=== PATIENT | male | born 1970 | race American Indian/Alaskan Native ===

== ENCOUNTER 2017-04-06 05:08 | Emergency (ER) | payer MEDICAID ==
[2017-04-06 06:13] VITALS: BP 126/88
[2017-04-06 06:32] LABS: Basophils % (Auto) 0.7 % (0.0-1.8); Eosinophils % (Auto) 4.1 % (0.0-4.3); Hematocrit 39.5 % (35.5-45.6); Hemoglobin 13.1 gm/dl (11.8-15.2); Mean Corpuscular HGB Conc 33 % (32-34); Mean Corpuscular Hemoglobin 30 pg (28-32); Mean Corpuscular Volume 91 fl (84-94); Platelet Count 254 K/mm3 (140-440); Red Blood Count 4.35 M/mm3 (3.65-5.03); Red Cell Distribution Width 13.9 % (13.2-15.2); White Blood Count 7.9 K/mm3 (4.5-11.0)
[2017-04-06 06:44] LABS: Alanine Aminotransferase 14 units/L (7-56); Albumin 4.2 g/dL (3.9-5); Albumin/Globulin Ratio 1.4 %; Alkaline Phosphatase 88 units/L (35-129); Anion Gap 16 mmol/L; BUN/Creatinine Ratio 11.25; Bilirubin,Total < 0.20 mg/dL (0.1-1.2); Blood Urea Nitrogen 9 mg/dL (9-20); Calcium 9.4 mg/dL (8.4-10.2); Carbon Dioxide 28 mmol/L (22-30); Chloride 102.5 mmol/L (98-107); Glucose 88 mg/dL (75-100); Lipase 28 units/L (13-60); Potassium 4.9 mmol/L (3.6-5.0); Sodium 142 mmol/L (137-145); Total Protein 7.2 g/dL (6.3-8.2)
[2017-04-06 06:45] LABS: Urine Drugs of Abuse Note Disclamer
[2017-04-06 07:03] LABS: Bilirubin,Urine NEG (Negative); Blood,Urine SM (Negative); Ketones,Urine NEG (Negative); Leukocyte Esterase,Urine NEG (Negative); Nitrite,Urine NEG (Negative); Protein,Urine <15 mg/dL mg/dL (Negative); Urobilinogen,Urine < 2.0 mg/dL (<2.0)
== END 2017-04-06 06:00 | disposition left against medical advice (07) ==
LOC: ED 05:08
DX: Z53.21 Procedure and treatment not carried out due to patient leaving prior to being seen by health care provider (principal)
CPT/HCPCS: 36415; 80053; 80307; 81001; 83690; 85025; G0480; 80320

== ENCOUNTER 2017-06-15 01:32 | Emergency (ER) | payer MEDICAID ==
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
[2017-06-15] MEDS ORDERED: ZOFRAN ONE (04:38)
[2017-06-15] MEDS ORDERED: MORPHINE ONE (04:38)
[2017-06-15] MEDS ORDERED: MORPHINE IM ONE (05:12)
[2017-06-15] MEDS ORDERED: ZOFRAN IM ONE (05:12)
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
[2017-06-15 09:14] VITALS: BP 115/58
== END 2017-06-15 09:15 | disposition home or self-care (01) ==
LOC: ED 01:32
DX: S02.609A Fracture of mandible, unspecified, initial encounter for closed fracture (principal); Y08.89XA Assault by other specified means, initial encounter; Y93.9 Activity, unspecified; Y92.9 Unspecified place or not applicable; Y99.9 Unspecified external cause status; F17.200 Nicotine dependence, unspecified, uncomplicated
CPT/HCPCS: 70450; 70486; 96372; 99283; J2270; J2405

== ENCOUNTER 2017-11-16 17:56 | Inpatient (IN) | payer SELFPAY ==
[2017-11-16] MEDS ORDERED: TYLENOL PO ONE (18:14)
[2017-11-16 18:27] LABS: Basophils # (Auto) 0.1 K/mm3 (0.0-0.1); Basophils % (Auto) 0.4 % (0.0-1.8); Eosinophils # (Auto) 0.1 K/mm3 (0.0-0.4); Eosinophils % (Auto) 0.6 % (0.0-4.3); Hemoglobin 13.8 gm/dl (11.8-15.2); Lymphocytes # (Auto) 1.4 K/mm3 (1.2-5.4); Lymphocytes % (Auto) 9.6 % (13.4-35.0); Mean Corpuscular HGB Conc 33 % (32-34); Mean Corpuscular Hemoglobin 30 pg (28-32); Mean Corpuscular Volume 91 fl (84-94); Monocytes # (Auto) 1.3 K/mm3 (0.0-0.8); Monocytes % (Auto) 8.6 % (0.0-7.3); Platelet Count 270 K/mm3 (140-440); Red Blood Count 4.61 M/mm3 (3.65-5.03)
[2017-11-16 18:46] LABS: BUN/Creatinine Ratio 13; Blood Urea Nitrogen 12 mg/dL (9-20); Calcium 9.5 mg/dL (8.4-10.2); Hemolysis Index 12
[2017-11-16 19:44] LABS: Bilirubin,Urine NEG (Negative); Blood,Urine NEG (Negative); Color,Urine Yellow (Yellow); Mucus,Urine FEW /HPF; Nitrite,Urine NEG (Negative)
[2017-11-16] MEDS ORDERED: NACL 0.9% 1000 ML IV ONE (20:18)
[2017-11-16] MEDS ORDERED: LEVAQUIN 750MG/150ML 750 MG/150 ML BAG IV ONE (20:20)
[2017-11-16] MEDS ORDERED: VANCOMYCIN VIAL IV ONE (20:20)
--- NOTE | 2017-11-16 20:21 | Emergency Department Report ---
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 Patient reports that a few days ago he had a sore on the dorsal aspect of his penis, and "picked it off." Shortly thereafter developed diffuse penile pain and swelling, left-sided testicular pain, right lower quadrant pain and right lower back pain. He endorses fevers, chills and body aches. He thinks that he has the flu. He denies severe headache, neck pain, chest pain, shortness of breath, irritative urinary symptoms. His pain is constant, does not radiate anywhere, it increases with palpation and decreases with rest. -: Gradual Location: back, abdomen, genitals Severity scale (0 -10): 5 Quality: aching Consistency: constant Improves with: rest Worsens with: movement Associated Symptoms: diaphoresis, fever/chills, loss of appetite, malaise, weakness. denies: confusion, chest pain, nausea/vomiting, rash, seizure, shortness of breath, syncope - Related Data Previous Rx's Medication Instructions Recorded Last Taken Type Ciprofloxacin HCl [Cipro] 500 mg PO Q12H #14 tab 10/13/13 Unknown Rx HYDROcodone/APAP 5-325 [[place] 1 each PO Q6HR PRN #14 tablet 06/15/17 Unknown Rx 5-325 mg TAB] Sulfamethoxazole/Trimethoprim 1 each PO BID #14 tablet 06/15/17 Unknown Rx [Bactrim DS TAB] Allergies Allergy/AdvReac Type Severity Reaction Status Date / Time Penicillins Allergy Hives Verified 10/12/13 22:28 ED Review of Systems ROS: Stated complaint: POSS UTI/ABSCESS ON GENITAL Other details as noted in HPI ED Past Medical Hx - Past Medical History Previous Medical History?: No - Surgical History Past Surgical History?: Yes Additional Surgical History: Jaw reconstruction - Social History Smoking Status: Current Every Day Smoker Substance Use Type: Alcohol, Marijuana - Medications Home Medications: Home Medications Medication Instructions Recorded Confirmed Last Taken Type Ciprofloxacin HCl [Cipro] 500 mg PO Q12H #14 tab 10/13/13 Unknown Rx HYDROcodone/APAP 5-325 [[place] 1 each PO Q6HR PRN #14 tablet 06/15/17 Unknown Rx 5-325 mg TAB] Sulfamethoxazole/Trimethoprim 1 each PO BID #14 tablet 06/15/17 Unknown Rx [Bactrim DS TAB] ED Physical Exam - General Limitations: No Limitations General appearance: alert, in no apparent distress - Head Head exam: Present: atraumatic, normocephalic - Eye Eye exam: Present: normal appearance, EOMI - ENT ENT exam: Present: mucous membranes dry - Neck Neck exam: Present: normal inspection, full ROM - Respiratory Respiratory exam: Present: normal lung sounds bilaterally. Absent: respiratory distress - Cardiovascular Cardiovascular Exam: Present: normal rhythm, tachycardia, normal heart sounds. Absent: systolic murmur, diastolic murmur, rubs, gallop - GI/Abdominal GI/Abdominal exam: Present: soft, normal bowel sounds. Absent: distended, tenderness, guarding, rebound, rigid - Rectal Rectal exam: Present: deferred - exam: Present: testicular tenderness (there is left-sided testicular tenderness.), other (there is no right-sided testicular tenderness. There is normal cremasteric reflex bilaterally. There is normal testicular lie bilaterally.) External exam: Present: other (the penis shaft is diffusely swollen, tender and indurated. There is a scab noted at 2:00.) - Extremities Exam Extremities exam: Present: normal inspection, full ROM, normal capillary refill. Absent: pedal edema, joint swelling, calf tenderness - Back Exam Back exam: Present: normal inspection, full ROM. Absent: tenderness, CVA tenderness (R), paraspinal tenderness, vertebral tenderness - Neurological Exam Neurological exam: Present: alert, oriented X3, CN II-XII intact, other ( Extraocular movements intact. Tongue midline. No facial droop. Facial sensation intact to light touch in the V1, V2, V3 distribution bilaterally. 5 and 5 strength in 4 extremities.. Sensation is intact to light touch in 4 extremities.). Absent: motor sensory deficit - Psychiatric Psychiatric exam: Present: normal mood, anxious - Skin Skin exam: Present: warm, dry, intact, normal color ED Course Vital Signs 11/16/17 11/16/17 18:07 18:15 Temperature 101.7 F H Pulse Rate 138 H Respiratory 14 18 Rate Blood Pressure 132/81 O2 Sat by Pulse 99 Oximetry - Reevaluation(s) Reevaluation #1: 11/16/17 21:28 Differential diagnosis, including but not limited to: Intra-abdominal abscess, penile cellulitis, Jennie's gangrene, epididymal orchitis Assessment and plan: 47-year-old male with probable penile cellulitis with fever , leukocytosis and tachycardia. Abdominal pain is most likely referred pain. Testicular examination demonstrates left-sided testicular tenderness. X-ray of the chest is negative, influenza screen is negative, based on history and physical, I favor sepsis secondary to soft tissue infection. His perineum is nontender and I think a necrotizing or invasive infection is less likely. Code sepsis called overhead, patient reports anaphylaxis to penicillins, he is therefore medicated empirically with Levaquin, as well as vancomycin. IV fluids , lactic acid, blood cultures ordered. Case discussed with urology consult at [place], Dr. Rock. He indicates that based on the current data there is no indication to transfer the patient as he does not require surgical intervention, and recommends IV antibiotics. Reevaluation #2: 11/16/17 22:07 CT scan of the abdomen and pelvis is negative. Testicular ultrasound was negative. Patient still requires pain medication. Awaiting repeat vital signs. Case presents to Hospital physician, Dr. Muñoz; she accepted the patient to the medical service. ED Medical Decision Making - Lab Data Result diagrams: 11/16/17 18:16 11/16/17 18:16 Vital Signs 11/16/17 11/16/17 18:07 18:15 Temperature 101.7 F H Pulse Rate 138 H Respiratory 14 18 Rate Blood Pressure 132/81 O2 Sat by Pulse 99 Oximetry Lab Results 11/16/17 11/16/17 11/16/17 Range/Units 18:16 18:16 18:18 WBC 15.1 H (4.5-11.0) K/mm3 RBC 4.61 (3.65-5.03) M/mm3 Hgb 13.8 (11.8-15.2) gm/dl Hct 42.0 (35.5-45.6) % MCV 91 (84-94) fl MCH 30 (28-32) pg MCHC 33 (32-34) % RDW 14.0 (13.2-15.2) % Plt Count 270 (140-440) K/mm3 Lymph % (Auto) 9.6 L (13.4-35.0) % [place]uyler % (Auto) 8.6 H (0.0-7.3) % Eos % (Auto) 0.6 (0.0-4.3) % Baso % (Auto) 0.4 (0.0-1.8) % Lymph # 1.4 (1.2-5.4) K/mm3 [place]uyler # 1.3 H (0.0-0.8) K/mm3 Eos # 0.1 (0.0-0.4) K/mm3 Baso # 0.1 (0.0-0.1) K/mm3 Seg Neutrophils % 80.8 H (40.0-70.0) % Seg Neutrophils # 12.2 H (1.8-7.7) K/mm3 Sodium 134 L (137-145) mmol/L Potassium 4.3 (3.6-5.0) mmol/L Chloride 95.5 L (98-107) mmol/L Carbon Dioxide 24 (22-30) mmol/L Anion Gap 19 mmol/L BUN 12 (9-20) mg/dL Creatinine 0.9 (0.8-1.5) mg/dL Estimated GFR > 60 ml/min BUN/Creatinine Ratio 13 % Glucose 100 (75-100) mg/dL Lactic Acid (0.7-2.0) mmol/L Calcium 9.5 (8.4-10.2) mg/dL Urine Color Yellow (Yellow) Urine Turbidity Clear (Clear) Urine pH 7.0 (5.0-7.0) Ur Specific Schneider 1.024 (1.003-1.030) Urine Protein 30 mg/dl (Negative) mg/dL Urine Glucose (UA) Neg (Negative) mg/dL Urine Ketones 20 (Negative) mg/dL Urine Blood Neg (Negative) Urine Nitrite Neg (Negative) Urine Bilirubin Neg (Negative) Urine Urobilinogen 4.0 (<2.0) mg/dL Ur Leukocyte Esterase Neg (Negative) Urine WBC (Auto) 5.0 (0.0-6.0) /HPF Urine RBC (Auto) 20.0 (0.0-6.0) /HPF U Epithel Cells (Auto) 1.0 (0-13.0) /HPF Urine Mucus Few /HPF 11/16/17 Range/Units 20:30 WBC (4.5-11.0) K/mm3 RBC (3.65-5.03) M/mm3 Hgb (11.8-15.2) gm/dl Hct (35.5-45.6) % MCV (84-94) fl MCH (28-32) pg MCHC (32-34) % RDW (13.2-15.2) % Plt Count (140-440) K/mm3 Lymph % (Auto) (13.4-35.0) % Schuyler % (Auto) (0.0-7.3) % Eos % (Auto) (0.0-4.3) % Baso % (Auto) (0.0-1.8) % Lymph # (1.2-5.4) K/mm3 Schuyler # (0.0-0.8) K/mm3 Eos # (0.0-0.4) K/mm3 Baso # (0.0-0.1) K/mm3 Seg Neutrophils % (40.0-70.0) % Seg Neutrophils # (1.8-7.7) K/mm3 Sodium (137-145) mmol/L Potassium (3.6-5.0) mmol/L Chloride (98-107) mmol/L Carbon Dioxide (22-30) mmol/L Anion Gap mmol/L BUN (9-20) mg/dL Creatinine (0.8-1.5) mg/dL Estimated GFR ml/min BUN/Creatinine Ratio % Glucose (75-100) mg/dL Lactic Acid 0.90 (0.7-2.0) mmol/L Calcium (8.4-10.2) mg/dL Urine Color (Yellow) Urine Turbidity (Clear) Urine pH (5.0-7.0) Ur Specific Schneider (1.003-1.030) Urine Protein (Negative) mg/dL Urine Glucose (UA) (Negative) mg/dL Urine Ketones (Negative) mg/dL Urine Blood (Negative) Urine Nitrite (Negative) Urine Bilirubin (Negative) Urine Urobilinogen (<2.0) mg/dL Ur Leukocyte Esterase (Negative) Urine WBC (Auto) (0.0-6.0) /HPF Urine RBC (Auto) (0.0-6.0) /HPF U Epithel Cells (Auto) (0-13.0) /HPF Urine Mucus /HPF - Radiology Data Radiology results: report reviewed, image reviewed X-ray of the chest, interpreted by myself and radiology: No acute disease. CT scan of the abdomen pelvis is pending. Testicular ultrasound is pending. Critical care attestation.: If time is entered above; I have spent that time in minutes in the direct care of this critically ill patient, excluding procedure time. ED Disposition Clinical Impression: Sepsis affecting skin Disposition: DC OP ADMIT IP TO THIS HOSP Is pt being admited?: Yes Does the pt Need Aspirin: No Condition: Good Referrals: SALLY RIDDLE MD [Primary Care Provider] - 3-5 Days
[2017-11-16] MEDS ORDERED: VANCOMYCIN PHARMACY TO DOSE IV SCH (21:00)
--- NOTE | 2017-11-16 21:15 | XRay Report ---
FINAL REPORT EXAM: XR CHEST 1V AP HISTORY: Fever/Sepsis TECHNIQUE: AP chest x-ray Comparison: CTA chest 10/14/2016 and lung bases from CT 11/16/2017 which are clear FINDINGS: Normal heart size. Lungs are clear and well expanded without focal infiltrate or consolidation. There is no effusion identified. Imaged axial skeleton demonstrates widened right AC joint somewhat obscured by annotation. The distal clavicle is not eroded this appears to be a chronic finding. IMPRESSION: Clear lungs. Known mild underlying emphysema.
--- NOTE | 2017-11-16 21:30 | Cat Scan Report ---
FINAL REPORT PROCEDURE: CT ABDOMEN PELVIS W CON TECHNIQUE: Computerized axial tomography of the abdomen and pelvis was performed after the IV injection of iodinated nonionic contrast. HISTORY: Fever/Sepsis COMPARISON: No prior studies are available for comparison. FINDINGS: 6 millimeter x 4 millimeter well-defined cystic lesion is noted involving segment 5 of right lobe liver. There are multiple additional smaller hypodense lesions measuring 3-4 millimeters which cannot be further evaluated. Spleen, and adrenal glands are within normal limits. Bilateral kidneys demonstrate uniform enhancement without hydronephrosis aorta is of normal caliber. There is no free fluid or free air. Gallbladder is unremarkable. Small bowel loops are within normal limits. Mild degree residual stool is noted. Appendix is partially visualized and is normal. IMPRESSION: Small cystic lesion right lobe liver. Is no smaller hypodense lesions are too small to characterize. Otherwise no acute intra-abdominal or pelvic pathology.
[2017-11-16] MEDS ORDERED: SUBLIMAZE IV ONE (22:07)
--- NOTE | 2017-11-16 22:20 | Ultrasound Report ---
FINAL REPORT EXAM: US TESTICULAR DOPPLER COMP HISTORY: testicular pain TECHNIQUE: Ultrasound of scrotum PRIORS: None. FINDINGS: Examination of the testicles demonstrates both to be normal in size and normal and homogeneous in echogenicity with normal blood flow bilaterally. No focal abnormality is noted in either testicle. The right testicle measures 3.9 x 2.3 x 2.9 cm and the left measures 4.1 x 1.5 x 2.6 cm. Both epididymides appear normal in size and echogenicity with normal blood flow. There is a cyst in the head of the right epididymis measuring 1.2 cm. No evidence for hydroceles or varicoceles are present bilaterally. IMPRESSION: Small cyst in the head of the right epididymis. Otherwise, normal testicular ultrasound
[2017-11-16] MEDS ORDERED: TYLENOL PO PRN (22:42)
[2017-11-16] MEDS ORDERED: MILK OF MAGNESIA PO PRN (22:42)
[2017-11-16] MEDS ORDERED: ZOFRAN IV PRN (22:42)
[2017-11-16] MEDS ORDERED: NACL 0.9% 1000 ML 1,000 ML ONE (22:42)
[2017-11-16] MEDS ORDERED: DULCOLAX PR PRN (22:42)
--- NOTE | 2017-11-16 22:44 | History and Physical Report ---
History of Present Illness Date of examination: 11/16/17 History of present illness: 47-year-old man with no medical problems comes emergency room because he stated he developed a pimple on the penis 2 days ago, he picked it and has now developed pain,swelling, fever, chills. He also complained of body ache Review Of Systems: Constitutional: no weight loss Ears, eyes, nose, mouth and throat: no nasal congestion, no nasal discharge, no sinus pressure, blurry vision, diplopia Neck: No neck pain or rigidity. Cardiovascular: No chest pain, palpitations Respiratory: No shortness of breath, cough Gastrointestinal: No abdominal pain, hematochezia Genitourinary : no dysuria, frequency , hematuria Musculoskeletal: no muscle ache Integumentary: no rash, no pruritis Neurological: no parathesias, focal weakness Endocrine: no cold or heat intolerance, no polyuria or polydipsia Hematologic/Lymphatic: no easy bruising, no easy bleeding, no gland swelling Allergic/Immunologic: no urticaria, no angioedema. PAST MEDICAL HISTORY:none PAST SURGICAL HISTORY:none FAMILY HISTORY: Hypertension SOCIAL HISTORY: Smokes half pack a day, methamphetamine use, positive alcohol use Medications and Allergies Allergies Allergy/AdvReac Type Severity Reaction Status Date / Time Penicillins Allergy Hives Verified 10/12/13 22:28 Home Medications Medication Instructions Recorded Confirmed Last Taken Type Ciprofloxacin HCl [Cipro] 500 mg PO Q12H #14 tab 10/13/13 Unknown Rx HYDROcodone/APAP 5-325 [[place] 1 each PO Q6HR PRN #14 tablet 06/15/17 Unknown Rx 5-325 mg TAB] Sulfamethoxazole/Trimethoprim 1 each PO BID #14 tablet 06/15/17 Unknown Rx [Bactrim DS TAB] Active Meds: Active Medications Vancomycin HCl 1,500 mg/ (Sodium Chloride) 515 mls @ 257.5 mls/hr IV Q12H DINAH Oseltamivir Phosphate (Tamiflu) 75 mg PO BID DINAH Stop: 11/21/17 10:01 Vancomycin HCl (Vancomycin Pharmacy To Dose) 1 each IV PKCONSULT DINAH PRN Reason: Protocol Exam - Physical Exam Narrative exam: Gen. appearance: Patient lying in bed in no acute distress HEENT: Normocephalic/atraumatic, pupils equal round reactive to light, extra occular movement intact, no scleral icterus, no JVD or thyromegaly or nodule, neck is supple, mucous membrane moist, no erythema or exudate Heart: S1-S2, regular rate and rhythm Lungs: Clear to auscultation bilateral breathing comfortable Abdomen: Positive bowel sounds, nontender, nondistended, no organomegaly Extremities: No edema, cyanosis, clubbing Neuro:: Oriented 3 , cranial nerves II-12 intact, speech, motor intact Skin: No rash, nodules, warm dry - Constitutional Vitals: Temp Pulse Resp BP Pulse Ox 101.7 F H 138 H 18 132/81 99 11/16/17 18:07 11/16/17 18:07 11/16/17 18:15 11/16/17 18:07 11/16/17 18:07 Results - Labs CBC & Chem 7: 11/16/17 18:16 11/16/17 18:16 Labs: Abnormal lab results 11/16/17 11/16/17 Range/Units 18:16 18:16 WBC 15.1 H (4.5-11.0) K/mm3 Lymph % (Auto) 9.6 L (13.4-35.0) % [place] % (Auto) 8.6 H (0.0-7.3) % Noble # 1.3 H (0.0-0.8) K/mm3 Seg Neutrophils % 80.8 H (40.0-70.0) % Seg Neutrophils # 12.2 H (1.8-7.7) K/mm3 Sodium 134 L (137-145) mmol/L Chloride 95.5 L (98-107) mmol/L - Imaging and Cardiology CT scan - abdomen: report reviewed CT scan - pelvis: report reviewed Assessment and Plan testicular US reviewed
[2017-11-16] MEDS: VANCOMYCIN 1,500 MG in NACL 0.9% 500 ML 500 ML IV SCH (22:57)
[2017-11-16] MEDS ORDERED: NACL 0.9% 1000 ML 1,000 ML IV SCH (23:00)
[2017-11-16] MEDS: TAMIFLU PO SCH (23:16)
[2017-11-16] MEDS ORDERED: ZOFRAN ONE (23:18)
[2017-11-17] MEDS ORDERED: TYLENOL PO ONE (01:15)
[2017-11-17] MEDS ORDERED: SUBLIMAZE IV ONE (01:15)
[2017-11-17] MEDS ORDERED: TORADOL IV ONE (02:12)
[2017-11-17] MEDS ORDERED: TORADOL ONE (02:14)
[2017-11-17 04:15] LABS: Hematocrit 42.5 % (35.5-45.6); Hemoglobin 13.8 gm/dl (11.8-15.2); Mean Corpuscular HGB Conc 33 % (32-34); Mean Corpuscular Hemoglobin 30 pg (28-32); Mean Corpuscular Volume 91 fl (84-94); Platelet Count 250 K/mm3 (140-440); Red Blood Count 4.67 M/mm3 (3.65-5.03); Red Cell Distribution Width 14.1 % (13.2-15.2)
[2017-11-17 04:25] LABS: BUN/Creatinine Ratio 13; Blood Urea Nitrogen 13 mg/dL (9-20); Calcium 9.3 mg/dL (8.4-10.2); Hemolysis Index 6
[2017-11-17] MEDS: PERCOCET 5/325 PO PRN ×4 (05:04→20:00)
--- NOTE | 2017-11-17 09:12 | Progress Note ---
<PRATIMA ALVARES - Last Filed: 11/17/17 14:21> Assessment and Plan Assessment and plan: This is a 47-year-old male who was previously on known to this provider, patient 's does not have a local primary care doctor, and endorses a past history of IV methamphetamine abuse within the past month. Patient reports that a few days ago he had a sore on the dorsal aspect of his penis, and "picked it off." Shortly thereafter developed diffuse penile pain and swelling, left-sided testicular pain, right lower quadrant pain and right lower back pain. He endorses fevers, chills and body aches. He thinks that he has the flu. He denies severe headache, neck pain, chest pain, shortness of breath, irritative urinary symptoms. His pain is constant, does not radiate anywhere, it increases with palpation and decreases with rest - Patient Problems (1) Penile cellulitis Current Visit: Yes Status: Acute Plan to address problem: Urology consulted, continue abx (2) Sepsis affecting skin Current Visit: Yes Status: Acute Plan to address problem: Improving, continue antibiotics, ID consulted (3) Current nicotine use Current Visit: Yes Status: Chronic Plan to address problem: Patient counseled on cessation, nicotine patch ordered (4) DVT prophylaxis Current Visit: Yes Status: Acute Plan to address problem: Lovenox History Interval history: Patient was seen and examined. He continues to complain of penile pain. Nursing notes, labs and imaging reviewed. Hospitalist Physical - Physical exam Narrative exam: the penile shaft is diffusely swollen, tender and indurated. - Constitutional Vitals: Temp Pulse Resp BP Pulse Ox 98.5 F 92 H 20 92/51 96 11/17/17 03:59 11/17/17 03:59 11/17/17 03:59 11/17/17 03:59 11/17/17 03:59 General appearance: Present: mild distress, well-nourished - EENT Eyes: Present: PERRL, EOM intact ENT: hearing intact, clear oral mucosa - Neck Neck: Present: supple, normal ROM - Respiratory Respiratory effort: normal Respiratory: bilateral: CTA - Cardiovascular Rhythm: regular Heart Sounds: Present: S1 & S2 - Extremities Extremities: no ischemia, No edema - Abdominal General gastrointestinal: soft, non-tender, non-distended - Integumentary Integumentary: Present: clear, warm, dry - Psychiatric Psychiatric: appropriate mood/affect, cooperative - Neurologic Neurologic: CNII-XII intact, moves all extremities - Allied Health Allied health notes reviewed: nursing Results - Labs CBC & Chem 7: 11/17/17 04:00 11/17/17 04:00 Labs: Laboratory Last Values WBC 14.4 K/mm3 (4.5-11.0) H 11/17/17 04:00 RBC 4.67 M/mm3 (3.65-5.03) 11/17/17 04:00 Hgb 13.8 gm/dl (11.8-15.2) 11/17/17 04:00 Hct 42.5 % (35.5-45.6) 11/17/17 04:00 MCV 91 fl (84-94) 11/17/17 04:00 MCH 30 pg (28-32) 11/17/17 04:00 MCHC 33 % (32-34) 11/17/17 04:00 RDW 14.1 % (13.2-15.2) 11/17/17 04:00 Plt Count 250 K/mm3 (140-440) 11/17/17 04:00 Lymph % (Auto) [employer] 11/17/17 04:00 [place] % (Auto) [employer] 11/17/17 04:00 Eos % (Auto) [employer] 11/17/17 04:00 Baso % (Auto) [employer] 11/17/17 04:00 Lymph # [employer] 11/17/17 04:00 [place] # [employer] 11/17/17 04:00 Eos # [employer] 11/17/17 04:00 Baso # [employer] 11/17/17 04:00 Seg Neutrophils % [employer] 11/17/17 04:00 Seg Neutrophils # [employer] 11/17/17 04:00 Sodium 138 mmol/L (137-145) 11/17/17 04:00 Potassium 3.9 mmol/L (3.6-5.0) 11/17/17 04:00 Chloride 95.0 mmol/L (98-107) L 11/17/17 04:00 Carbon Dioxide 23 mmol/L (22-30) 11/17/17 04:00 Anion Gap 24 mmol/L 11/17/17 04:00 BUN 13 mg/dL (9-20) 11/17/17 04:00 Creatinine 1.0 mg/dL (0.8-1.5) 11/17/17 04:00 Estimated GFR > 60 ml/min 11/17/17 04:00 BUN/Creatinine Ratio 13 % 11/17/17 04:00 Glucose 31 mg/dL (75-100) L* 11/17/17 04:00 POC Glucose 113 (70-105) H 11/17/17 07:24 Lactic Acid 0.90 mmol/L (0.7-2.0) 11/16/17 23:48 Calcium 9.3 mg/dL (8.4-10.2) 11/17/17 04:00 Urine Color Yellow (Yellow) 11/16/17 18:18 Urine Turbidity Clear (Clear) 11/16/17 18:18 Urine pH 7.0 (5.0-7.0) 11/16/17 18:18 Ur Specific [place] 1.024 (1.003-1.030) 11/16/17 18:18 Urine Protein 30 mg/dl mg/dL (Negative) 11/16/17 18:18 Urine Glucose (UA) Neg mg/dL (Negative) 11/16/17 18:18 Urine Ketones 20 mg/dL (Negative) 11/16/17 18:18 Urine Blood Neg (Negative) 11/16/17 18:18 Urine Nitrite Neg (Negative) 11/16/17 18:18 Urine Bilirubin Neg (Negative) 11/16/17 18:18 Urine Urobilinogen 4.0 mg/dL (<2.0) 11/16/17 18:18 Ur Leukocyte Esterase Neg (Negative) 11/16/17 18:18 Urine WBC (Auto) 5.0 /HPF (0.0-6.0) 11/16/17 18:18 Urine RBC (Auto) 20.0 /HPF (0.0-6.0) 11/16/17 18:18 U Epithel Cells (Auto) 1.0 /HPF (0-13.0) 11/16/17 18:18 Urine Mucus Few /HPF 11/16/17 18:18 <SALLY MACHUCA - Last Filed: 11/17/17 15:32> Assessment and Plan Assessment and plan: I saw and evaluated the patient. I agree with the findings and the plan of care as documented in the Nurse Practitioner's~note, with the following corrections and additions. Patient with penile edema, cellulitis. Continue antibiotics. Consult Urology and ID Physician. Hospitalist Physical - Constitutional Vitals: Temp Pulse Resp BP Pulse Ox 98.4 F 83 20 96/52 97 11/17/17 08:57 11/17/17 08:57 11/17/17 14:07 11/17/17 08:57 11/17/17 08:57 Results - Labs CBC & Chem 7: 11/17/17 04:00 11/17/17 04:00 Labs: Laboratory Last Values WBC 14.4 K/mm3 (4.5-11.0) H 11/17/17 04:00 RBC 4.67 M/mm3 (3.65-5.03) 11/17/17 04:00 Hgb 13.8 gm/dl (11.8-15.2) 11/17/17 04:00 Hct 42.5 % (35.5-45.6) 11/17/17 04:00 MCV 91 fl (84-94) 11/17/17 04:00 MCH 30 pg (28-32) 11/17/17 04:00 MCHC 33 % (32-34) 11/17/17 04:00 RDW 14.1 % (13.2-15.2) 11/17/17 04:00 Plt Count 250 K/mm3 (140-440) 11/17/17 04:00 Lymph % (Auto) [employer] [place] 11/17/17 04:00 [place] % (Auto) [employer] 11/17/17 04:00 Eos % (Auto) [employer] 11/17/17 04:00 Baso % (Auto) [employer] [place] 11/17/17 04:00 Lymph # [employer] [place] 11/17/17 04:00 [place] # [employer] 11/17/17 04:00 Eos # [employer] 11/17/17 04:00 Baso # [employer] [place] 11/17/17 04:00 Seg Neutrophils % [employer] [place] 11/17/17 04:00 Seg Neutrophils # [employer] [place] 11/17/17 04:00 Sodium 138 mmol/L (137-145) 11/17/17 04:00 Potassium 3.9 mmol/L (3.6-5.0) 11/17/17 04:00 Chloride 95.0 mmol/L (98-107) L 11/17/17 04:00 Carbon Dioxide 23 mmol/L (22-30) 11/17/17 04:00 Anion Gap 24 mmol/L 11/17/17 04:00 BUN 13 mg/dL (9-20) 11/17/17 04:00 Creatinine 1.0 mg/dL (0.8-1.5) 11/17/17 04:00 Estimated GFR > 60 ml/min 11/17/17 04:00 BUN/Creatinine Ratio 13 % 11/17/17 04:00 Glucose 31 mg/dL (75-100) L* 11/17/17 04:00 POC Glucose 113 (70-105) H 11/17/17 07:24 Lactic Acid 0.90 mmol/L (0.7-2.0) 11/16/17 23:48 Calcium 9.3 mg/dL (8.4-10.2) 11/17/17 04:00 Urine Color Yellow (Yellow) 11/16/17 18:18 Urine Turbidity Clear (Clear) 11/16/17 18:18 Urine pH 7.0 (5.0-7.0) 11/16/17 18:18 Ur Specific [place] 1.024 (1.003-1.030) 11/16/17 18:18 Urine Protein 30 mg/dl mg/dL (Negative) 11/16/17 18:18 Urine Glucose (UA) Neg mg/dL (Negative) 11/16/17 18:18 Urine Ketones 20 mg/dL (Negative) 11/16/17 18:18 Urine Blood Neg (Negative) 11/16/17 18:18 Urine Nitrite Neg (Negative) 11/16/17 18:18 Urine Bilirubin Neg (Negative) 11/16/17 18:18 Urine Urobilinogen 4.0 mg/dL (<2.0) 11/16/17 18:18 Ur Leukocyte Esterase Neg (Negative) 11/16/17 18:18 Urine WBC (Auto) 5.0 /HPF (0.0-6.0) 11/16/17 18:18 Urine RBC (Auto) 20.0 /HPF (0.0-6.0) 11/16/17 18:18 U Epithel Cells (Auto) 1.0 /HPF (0-13.0) 11/16/17 18:18 Urine Mucus Few /HPF 11/16/17 18:18
[2017-11-17] MEDS ORDERED: LOVENOX SUB-Q SCH (10:00)
[2017-11-17] MEDS: VANCOMYCIN 1,500 MG in NACL 0.9% 500 ML 500 ML IV SCH ×2 (10:04→23:21)
[2017-11-17] MEDS: LOVENOX SUB-Q SCH (10:05)
[2017-11-17] MEDS: TAMIFLU PO SCH ×2 (10:05→23:22)
[2017-11-17] MEDS: LEVAQUIN 750MG/150ML 750 MG/150 ML BAG IV SCH (10:05)
[2017-11-17] MEDS: HABITROL TD SCH (12:57)
--- NOTE | 2017-11-17 17:30 | Consultation ---
History of Present Illness - Reason for Consult Consult date: 11/17/17 sepsis Requesting physician: PRATIMA CEBALLOS - History of Present Illness 47 years old male with history of IV methamphetamine abuse within the past month ; admitted on 11/16/2018 due to 48 hours history of severe penile swelling, tenderness and erythema. Patient reports that today before admission, he noted a bump on the dorsal aspect of his penile shaft. Denies any recent trauma or injury. He is sexually active with 2 females, condom and uses is consistent. He reports that the same day he started to picked on the pump to make it drained. He did not get any purulence out. However, 12 hours later he noted increased erythema and edema and tenderness of the area. She also noted nausea and malaise with chills. Denies vomiting or diarrhea. He also noted severe frontal headache. No cough. In the emergency room, initial temperature was 101.7, heart rate 138, respiration 14, O2 sat 99, blood pressure 132/81. Initial white count 15.1. Hemoglobin 13.8. Platelets 270. Creatinine is 0.9. Lactic acid 0.9. Urinalysis was negative. Microbiology: Blood cultures: 11/16 ngtd Influenza: neg Current Antimicrobials: Tamiflu Levaquin Vancomycin Previous Antimicrobials: Past History Past Surgical History: No surgical history Social history: no significant social history, single, smoking, IV drug use Family history: no significant family history Medications and Allergies Allergies Allergy/AdvReac Type Severity Reaction Status Date / Time Penicillins Allergy Hives Verified 10/12/13 22:28 Home Medications Medication Instructions Recorded Confirmed Last Taken Type No Known Home Medications [No 11/17/17 11/17/17 Unknown History Reported Home Medications] Active Meds: Active Medications Acetaminophen (Tylenol) 650 mg PO Q4H PRN PRN Reason: Pain MILD(1-3)/Fever >100.5/CERDA Bisacodyl (Dulcolax) 10 mg IA QDAY PRN PRN Reason: Constipation unrelieved by MOM Enoxaparin Sodium (Lovenox) 40 mg SUB-Q QDAY@1000 [facility] Last Admin: 11/17/17 10:05 Dose: 40 mg Vancomycin HCl 1,500 mg/ (Sodium Chloride) 515 mls @ 257.5 mls/hr IV Q12H [facility] Last Admin: 11/17/17 10:04 Dose: 257.5 mls/hr Sodium Chloride (Nacl 0.9% 1000 Ml) 1,000 mls @ 150 mls/hr IV DIRECT DINAH Levofloxacin/Dextrose (Levaquin 750mg/150ml) 750 mg in 150 mls @ 100 mls/hr IV Q24HR DINAH PRN Reason: Protocol Last Admin: 11/17/17 10:05 Dose: 100 mls/hr Magnesium Hydroxide (Milk Of Magnesia) 30 ml PO Q4H PRN PRN Reason: Constipation Nicotine (Habitrol) 14 mg TD QDAY [facility] Last Admin: 11/17/17 12:57 Dose: 14 mg Ondansetron HCl (Zofran) 4 mg IV Q4H PRN PRN Reason: N/V unrelieved by [place] Last Admin: 11/16/17 23:16 Dose: 4 mg Oseltamivir Phosphate (Tamiflu) 75 mg PO BID [facility] Stop: 11/21/17 10:01 Last Admin: 11/17/17 10:05 Dose: 75 mg Oxycodone/Acetaminophen (Percocet 5/325) 1 tab PO Q4H PRN PRN Reason: Pain, Moderate (4-6) Last Admin: 11/17/17 14:07 Dose: 1 tab Vancomycin HCl (Vancomycin Pharmacy To Dose) 1 each IV PKCONSULT DINAH PRN Reason: Protocol Review of Systems All systems: negative (as per HPI rest neg) Physical Examination - Physical Exam Narrative exam: Assessment: 1) Sepsis: Present on admission, manifested by fever, tachycardia, leukocytosis. Etiology most likely penile cellulitis / abscess, less likely influenza 2) Penile cellulitis / early abscess: initial lesion unclear etiology ? STD versus folliculitis 3) IV amphetamine user Plan: -Urology eval -follow-up blood cultures -obtain C-reactive protein (CRP) -check influenza antigen PCR in nasopharinx -continue vanco, zosyn and tamiflu -check HIV, RPR, GC and chlamydia -add doxycycline Thank you VINCENT Ceballos for your consultation, will follow up with you. Shantelle Desai MD Infectious Diseases Specialist [facility] ([facility]) M [phone] O [phone] - Constitutional Vitals: Vital Signs Temp Pulse Resp BP Pulse Ox 99.0 F 89 18 97/54 93 11/17/17 15:50 11/17/17 15:50 11/17/17 15:50 11/17/17 15:50 11/17/17 15:50 Temperature -Last 24 Hours Temperature 99.0 F Temperature 100.4 F Temperature 98.4 F Temperature 98.5 F Temperature 102.2 F Temperature 101.7 F Results - Labs CBC & Chem 7: 11/17/17 04:00 11/17/17 04:00 Labs: Abnormal lab results 11/16/17 11/16/17 11/17/17 Range/Units 18:16 18:16 04:00 WBC 15.1 H 14.4 H (4.5-11.0) K/mm3 Lymph % (Auto) 9.6 L (13.4-35.0) % [place] % (Auto) 8.6 H (0.0-7.3) % [place] # 1.3 H (0.0-0.8) K/mm3 Seg Neutrophils % 80.8 H (40.0-70.0) % Seg Neutrophils # 12.2 H (1.8-7.7) K/mm3 Sodium 134 L (137-145) mmol/L Chloride 95.5 L (98-107) mmol/L Glucose (75-100) mg/dL POC Glucose (70-105) 11/17/17 11/17/17 Range/Units 04:00 07:24 WBC (4.5-11.0) K/mm3 Lymph % (Auto) (13.4-35.0) % [place] % (Auto) (0.0-7.3) % [place] # (0.0-0.8) K/mm3 Seg Neutrophils % (40.0-70.0) % Seg Neutrophils # (1.8-7.7) K/mm3 Sodium (137-145) mmol/L Chloride 95.0 L (98-107) mmol/L Glucose 31 L* (75-100) mg/dL POC Glucose 113 H (70-105)
--- NOTE | 2017-11-17 17:45 | Progress Note ---
Assessment and Plan ?? chancrois or LGV on IV abs ID consult noted rec mri and poss drainage pensing all explained dictated Subjective Date of service: 11/17/17 Principal diagnosis: penile lesion edema Objective - Constitutional Vitals: Vital Signs - 12hr 11/17/17 11/17/17 11/17/17 08:57 10:44 12:26 Temperature 98.4 F 100.4 F H Pulse Rate 83 92 H Respiratory 16 20 18 Rate Blood Pressure 96/52 94/55 O2 Sat by Pulse 97 97 Oximetry 11/17/17 11/17/17 14:07 15:50 Temperature 99.0 F Pulse Rate 89 Respiratory 20 18 Rate Blood Pressure 97/54 O2 Sat by Pulse 93 Oximetry General appearance: Present: mild distress - Neck Neck: supple - Respiratory Respiratory effort: normal - Gastrointestinal General gastrointestinal: Present: soft, non-tender - Genitourinary Male genitourinary: right inguinal lymphadenopathy, left inguinal lymphadenopathy, asymmetrical - Labs CBC & Chem 7: 11/17/17 04:00 11/17/17 04:00 Labs: Abnormal lab results 11/16/17 11/16/17 11/17/17 Range/Units 18:16 18:16 04:00 WBC 15.1 H 14.4 H (4.5-11.0) K/mm3 Lymph % (Auto) 9.6 L (13.4-35.0) % [place] % (Auto) 8.6 H (0.0-7.3) % [place] # 1.3 H (0.0-0.8) K/mm3 Seg Neutrophils % 80.8 H (40.0-70.0) % Seg Neutrophils # 12.2 H (1.8-7.7) K/mm3 Sodium 134 L (137-145) mmol/L [place] 95.5 L (98-107) mmol/L Glucose (75-100) mg/dL POC Glucose (70-105) 11/17/17 11/17/17 Range/Units 04:00 07:24 WBC (4.5-11.0) K/mm3 Lymph % (Auto) (13.4-35.0) % [place] % (Auto) (0.0-7.3) % [place] # (0.0-0.8) K/mm3 Seg Neutrophils % (40.0-70.0) % Seg Neutrophils # (1.8-7.7) K/mm3 Sodium (137-145) mmol/L Chloride 95.0 L (98-107) mmol/L Glucose 31 L* (75-100) mg/dL POC Glucose 113 H (70-105)
[2017-11-17] MEDS: VIBRAMYCIN PO SCH (23:22)
[2017-11-18] MEDS: PERCOCET 5/325 PO PRN ×3 (02:49→18:02)
--- NOTE | 2017-11-18 05:54 | Consultation ---
HISTORY OF PRESENT ILLNESS: The patient is a 47-year-old gentleman with history of IV amphetamine abuse who has a severe swelling in the dorsum of his penis and induration. He has some significant adenopathy. He has at least 2 partners sexually. He denies any recent venereal disease, but the swelling is bad and tender. He has been circumcised in the past. PAST MEDICAL HISTORY: As mentioned above. PAST SURGICAL HISTORY: Facial surgery. SOCIAL HISTORY: History of drug use. MEDICATIONS: Bactrim. ALLERGIES: PENICILLIN. REVIEW OF SYSTEMS: A 3-4 days of the swelling that has progressed. PHYSICAL EXAMINATION: GENERAL: Awake, alert, he is in moderate discomfort. ABDOMEN: Soft, nondistended. GENITALIA: He has got bilateral 1 cm adenopathy. In his penis, he has got an ulcer mid shaft, circumcised with severe distal edema and induration proximally extending to both groins. There is no fluctuation. Testes descended bilaterally. RECTAL: Digital rectal exam, no localized masses, 10-15 gram prostate, no nodules. IMPRESSION: Rule out Chancroid or lymphogranuloma venereum or local trauma or bite. He needs IV antibiotics and possible exploration. We will get an MRI of the penis. JOB# [id number] ALEKS/VINNY
[2017-11-18 06:35] LABS: Hemoglobin 12.5 gm/dl (11.8-15.2); Mean Corpuscular HGB Conc 34 % (32-34); Mean Corpuscular Hemoglobin 31 pg (28-32); Mean Corpuscular Volume 90 fl (84-94); Platelet Count 208 K/mm3 (140-440); Red Blood Count 4.01 M/mm3 (3.65-5.03); Red Cell Distribution Width 13.5 % (13.2-15.2)
[2017-11-18 08:11] LABS: BUN/Creatinine Ratio 8; Blood Urea Nitrogen 6 mg/dL (9-20); Calcium 8.5 mg/dL (8.4-10.2); Hemolysis Index 0
[2017-11-18] MEDS ORDERED: ZOVIRAX IV SCH (09:00)
--- NOTE | 2017-11-18 09:31 | Progress Note ---
Assessment and Plan Assessment: 1) Sepsis:still fever, leukocytosis better. Etiology most likely penile cellulitis / abscess, less likely influenza. CRP=9.9 2) Penile cellulitis / early abscess / painful penile lesion: initial lesion unclear etiology ? HSV (given partner positive for HSV) with superimposed bacterial infection versus folliculitis versus LVG (doubt since LVG is painless ) versus Chancroid (it is painful but rare in [place]) 3) IV amphetamine user 4) Cough: CXR neg. Influenza Ag neg Plan: -penile MRI -please obtain ulcer cultures and specimen for HSV PCR -start IV acyclovir -continue vanco, zosyn, doxy and tamiflu -f/u HIV, RPR, GC and chlamydia Thank you VINCENT Ceballos for your consultation, will follow up with you. Shantelle Desai MD Infectious Diseases Specialist [facility] ([facility]) M [phone] O [phone] Subjective Date of service: 11/18/17 Principal diagnosis: penile lesion edema Interval history: Still fever 102, feels some better, slightly decreased of penile edema. Microbiology: Blood cultures: 11/16 ngtd Influenza: neg Current Antimicrobials: Tamiflu Levaquin Vancomycin Doxy Previous Antimicrobials: Objective - Exam Narrative Exam: General appearance: Alert in NAD, conversant Eyes: anicteric sclerae, moist conjunctivae; no lid-lag; PERRLA HENT: Atraumatic; oropharynx clear Neck: Trachea midline; supple, no thyromegaly or lymphadenopathy Lungs: CTA CV: RRR, no murmurs Abdomen: Soft, non-tender; no masses or hepatosplenomegaly Extremities: No peripheral edema or extremity lymphadenopathy Skin: Normal temperature, turgor and texture; no rash, ulcers or subcutaneous nodules Gen: marked penile edema and mid shaft ulcerations with central necrosis no purulence seen Psych: Appropriate affect, alert and oriented to person, place and time. Neuro: alert and oriented x 3. Moving all extermities Lines: No CVL / PICC - Constitutional Vitals: Vital Signs Temp Pulse Resp BP Pulse Ox 98.8 F 82 18 85/52 93 11/18/17 07:19 11/18/17 07:19 11/18/17 07:19 11/18/17 07:19 11/18/17 07:19 Temperature -Last 24 Hours Temperature 98.8 F Temperature 102.7 F Temperature 101.0 F Temperature 99.0 F Temperature 100.4 F - Labs CBC & Chem 7: 11/18/17 05:15 11/18/17 05:15 Labs: Abnormal lab results 11/17/17 11/18/17 Range/Units Unknown 05:15 BUN 6 L (9-20) mg/dL Glucose 138 H (75-100) mg/dL C-Reactive Protein 9.90 H (0.00-1.30) mg/dL
[2017-11-18] MEDS: VANCOMYCIN 1,500 MG in NACL 0.9% 500 ML 500 ML IV SCH ×2 (11:56→23:18)
[2017-11-18] MEDS: LEVAQUIN 750MG/150ML 750 MG/150 ML BAG IV SCH (12:05)
[2017-11-18] MEDS: TAMIFLU PO SCH (12:12)
[2017-11-18] MEDS: HABITROL TD SCH (12:12)
[2017-11-18] MEDS: LOVENOX SUB-Q SCH (12:13)
[2017-11-18] MEDS: VIBRAMYCIN PO SCH ×2 (12:13→21:02)
[2017-11-18] MEDS: ZOVIRAX 700 MG in NACL 0.9% 100 ML IV SCH ×2 (12:13→21:02)
--- NOTE | 2017-11-18 13:56 | Progress Note ---
<PRATIMA ALVARES - Last Filed: 11/18/17 14:00> Assessment and Plan Assessment and plan: This is a 47-year-old male who was previously on known to this provider, patient 's does not have a local primary care doctor, and endorses a past history of IV methamphetamine abuse within the past month. Patient reports that a few days ago he had a sore on the dorsal aspect of his penis, and "picked it off." Shortly thereafter developed diffuse penile pain and swelling, left-sided testicular pain, right lower quadrant pain and right lower back pain. He endorses fevers, chills and body aches. He thinks that he has the flu. He denies severe headache, neck pain, chest pain, shortness of breath, irritative urinary symptoms. His pain is constant, does not radiate anywhere, it increases with palpation and decreases with rest Penile cellulitis Urology and ID following Pt to continue vanco, zosyn, doxy and tamiflu, IV acyclovir initiated f/u HIV, RPR, GC and chlamydia penile ulcer culture ordered, MRI pelvis ordered, possible exploration Sepsis affecting skin Improving, continue antibiotics, ID consulted Current nicotine use Patient counseled on cessation, nicotine patch ordered DVT prophylaxis Lovenox History Interval history: Patient was seen and examined. He is resting comfortably with decreased penile pain today. He denies CP, SOB, NV. Nursing notes, labs and imaging reviewed. Hospitalist Physical - Constitutional Vitals: Temp Pulse Resp BP Pulse Ox 98.8 F 82 18 85/52 93 11/18/17 07:19 11/18/17 07:19 11/18/17 07:19 11/18/17 07:19 11/18/17 07:19 General appearance: Present: no acute distress, well-nourished - EENT Eyes: Present: PERRL, EOM intact ENT: hearing intact, clear oral mucosa - Neck Neck: Present: supple, normal ROM - Respiratory Respiratory effort: normal Respiratory: bilateral: CTA - Cardiovascular Rhythm: regular Heart Sounds: Present: S1 & S2 - Extremities Extremities: no ischemia, No edema - Abdominal General gastrointestinal: soft, non-tender, non-distended - Integumentary Integumentary: Present: clear, warm, dry - Psychiatric Psychiatric: appropriate mood/affect, cooperative - Neurologic Neurologic: CNII-XII intact - Allied Health Allied health notes reviewed: nursing Results - Labs CBC & Chem 7: 11/18/17 05:15 11/18/17 05:15 Labs: Laboratory Last Values WBC 10.4 K/mm3 (4.5-11.0) 11/18/17 05:15 RBC 4.01 M/mm3 (3.65-5.03) 11/18/17 05:15 Hgb 12.5 gm/dl (11.8-15.2) 11/18/17 05:15 Hct 39.0 % (35.5-45.6) 11/18/17 05:15 MCV 90 fl (84-94) 11/18/17 05:15 MCH 31 pg (28-32) 11/18/17 05:15 MCHC 34 % (32-34) 11/18/17 05:15 RDW 13.5 % (13.2-15.2) 11/18/17 05:15 Plt Count 208 K/mm3 (140-440) 11/18/17 05:15 Lymph % (Auto) Nurse Ob 11/17/17 04:00 Wright % (Auto) Nurse Ob 11/17/17 04:00 Eos % (Auto) Nurse Ob 11/17/17 04:00 Baso % (Auto) Nurse Ob 11/17/17 04:00 Lymph # Nurse Ob 11/17/17 04:00 Wright # Nurse Ob 11/17/17 04:00 Eos # Nurse Ob 11/17/17 04:00 Baso # Nurse Ob 11/17/17 04:00 Seg Neutrophils % Nurse Ob 11/17/17 04:00 Seg Neutrophils # Nurse Ob 11/17/17 04:00 Sodium 137 mmol/L (137-145) 11/18/17 05:15 Potassium 3.7 mmol/L (3.6-5.0) 11/18/17 05:15 Chloride 102.2 mmol/L (98-107) 11/18/17 05:15 Carbon Dioxide 22 mmol/L (22-30) 11/18/17 05:15 Anion Gap 17 mmol/L 11/18/17 05:15 BUN 6 mg/dL (9-20) L 11/18/17 05:15 Creatinine 0.8 mg/dL (0.8-1.5) 11/18/17 05:15 Estimated GFR > 60 ml/min 11/18/17 05:15 BUN/Creatinine Ratio 8 % 11/18/17 05:15 Glucose 138 mg/dL (75-100) H 11/18/17 05:15 POC Glucose 113 (70-105) H 11/17/17 07:24 Lactic Acid 0.90 mmol/L (0.7-2.0) 11/16/17 23:48 Calcium 8.5 mg/dL (8.4-10.2) 11/18/17 05:15 C-Reactive Protein 9.90 mg/dL (0.00-1.30) H 11/17/17 Unknown Urine Color Yellow (Yellow) 11/16/17 18:18 Urine Turbidity Clear (Clear) 11/16/17 18:18 Urine pH 7.0 (5.0-7.0) 11/16/17 18:18 Ur Specific [place] 1.024 (1.003-1.030) 11/16/17 18:18 Urine Protein 30 mg/dl mg/dL (Negative) 11/16/17 18:18 Urine Glucose (UA) Neg mg/dL (Negative) 11/16/17 18:18 Urine Ketones 20 mg/dL (Negative) 11/16/17 18:18 Urine Blood Neg (Negative) 11/16/17 18:18 Urine Nitrite Neg (Negative) 11/16/17 18:18 Urine Bilirubin Neg (Negative) 11/16/17 18:18 Urine Urobilinogen 4.0 mg/dL (<2.0) 11/16/17 18:18 Ur Leukocyte Esterase Neg (Negative) 11/16/17 18:18 Urine WBC (Auto) 5.0 /HPF (0.0-6.0) 11/16/17 18:18 Urine RBC (Auto) 20.0 /HPF (0.0-6.0) 11/16/17 18:18 U Epithel Cells (Auto) 1.0 /HPF (0-13.0) 11/16/17 18:18 Urine Mucus Few /HPF 11/16/17 18:18 RPR Nonreactive (Nonreactive) 11/17/17 19:36 HIV 1&2 Antibody Rapid N (Non React) 11/17/17 19:36 HIV P24 Antigen N (Non React) 11/17/17 19:36 <AKHIL MEADOWS R - Last Filed: 11/18/17 21:19> Assessment and Plan Assessment and plan: I saw and evaluated the patient. I agree with the findings and the plan of care as documented in the Nurse Practitioner's~note, with the following corrections and additions. Will stop Tamiflu as influenza test was negative. Hospitalist Physical - Constitutional Vitals: Temp Pulse Resp BP Pulse Ox 102.3 F H 81 18 122/74 97 11/18/17 15:47 11/18/17 15:47 11/18/17 15:47 11/18/17 15:47 11/18/17 15:47 Results - Labs CBC & Chem 7: 11/18/17 05:15 11/18/17 05:15 Labs: Laboratory Last Values WBC 10.4 K/mm3 (4.5-11.0) 11/18/17 05:15 RBC 4.01 M/mm3 (3.65-5.03) 11/18/17 05:15 Hgb 12.5 gm/dl (11.8-15.2) 11/18/17 05:15 Hct 39.0 % (35.5-45.6) 11/18/17 05:15 MCV 90 fl (84-94) 11/18/17 05:15 MCH 31 pg (28-32) 11/18/17 05:15 MCHC 34 % (32-34) 11/18/17 05:15 RDW 13.5 % (13.2-15.2) 11/18/17 05:15 Plt Count 208 K/mm3 (140-440) 11/18/17 05:15 Lymph % (Auto) Nurse Ob 11/17/17 04:00 Wright % (Auto) Nurse Ob 11/17/17 04:00 Eos % (Auto) Nurse Ob 11/17/17 04:00 Baso % (Auto) Nurse Ob 11/17/17 04:00 Lymph # Nurse Ob 11/17/17 04:00 Wright # Nurse Ob 11/17/17 04:00 Eos # Nurse Ob 11/17/17 04:00 Baso # Nurse Ob 11/17/17 04:00 Seg Neutrophils % Nurse Ob 11/17/17 04:00 Seg Neutrophils # Nurse Ob 11/17/17 04:00 Sodium 137 mmol/L (137-145) 11/18/17 05:15 Potassium 3.7 mmol/L (3.6-5.0) 11/18/17 05:15 Chloride 102.2 mmol/L (98-107) 11/18/17 05:15 Carbon Dioxide 22 mmol/L (22-30) 11/18/17 05:15 Anion Gap 17 mmol/L 11/18/17 05:15 BUN 6 mg/dL (9-20) L 11/18/17 05:15 Creatinine 0.8 mg/dL (0.8-1.5) 11/18/17 05:15 Estimated GFR > 60 ml/min 11/18/17 05:15 BUN/Creatinine Ratio 8 % 11/18/17 05:15 Glucose 138 mg/dL (75-100) H 11/18/17 05:15 POC Glucose 113 (70-105) H 11/17/17 07:24 Lactic Acid 0.90 mmol/L (0.7-2.0) 11/16/17 23:48 Calcium 8.5 mg/dL (8.4-10.2) 11/18/17 05:15 C-Reactive Protein 9.90 mg/dL (0.00-1.30) H 11/17/17 Unknown Urine Color Yellow (Yellow) 11/16/17 18:18 Urine Turbidity Clear (Clear) 11/16/17 18:18 Urine pH 7.0 (5.0-7.0) 11/16/17 18:18 Ur Specific [place] 1.024 (1.003-1.030) 11/16/17 18:18 Urine Protein 30 mg/dl mg/dL (Negative) 11/16/17 18:18 Urine Glucose (UA) Neg mg/dL (Negative) 11/16/17 18:18 Urine Ketones 20 mg/dL (Negative) 11/16/17 18:18 Urine Blood Neg (Negative) 11/16/17 18:18 Urine Nitrite Neg (Negative) 11/16/17 18:18 Urine Bilirubin Neg (Negative) 11/16/17 18:18 Urine Urobilinogen 4.0 mg/dL (<2.0) 11/16/17 18:18 Ur Leukocyte Esterase Neg (Negative) 11/16/17 18:18 Urine WBC (Auto) 5.0 /HPF (0.0-6.0) 11/16/17 18:18 Urine RBC (Auto) 20.0 /HPF (0.0-6.0) 11/16/17 18:18 U Epithel Cells (Auto) 1.0 /HPF (0-13.0) 11/16/17 18:18 Urine Mucus Few /HPF 11/16/17 18:18 RPR Nonreactive (Nonreactive) 11/17/17 19:36 HIV 1&2 Antibody Rapid N (Non React) 11/17/17 19:36 HIV P24 Antigen N (Non React) 11/17/17 19:36
[2017-11-18] MEDS: MORPHINE IV PRN ×2 (14:54→21:01)
--- NOTE | 2017-11-18 16:09 | Anesthesia Consultation ---
Anesthesia Consult and Med Hx Date of service: 11/18/17 - Airway Anesthetic Teeth Evaluation: Good ROM Head & Neck: Adequate Mental/Hyoid Distance: Adequate Mallampati Class: Class II Intubation Access Assessment: Probably Good - Pulmonary Exam CTA: Yes - Cardiac Exam Cardiac Exam: RRR - Pre-Operative Health Status ASA Pre-Surgery Classification: ASA2 Proposed Anesthetic Plan: MAC (12pack years) - Pulmonary Hx Smoking: Yes Hx Asthma: No COPD: No Hx Pneumonia: No - Cardiovascular System Hx Hypertension: No - Central Nervous System Hx Psychiatric Problems: No - Gastrointestinal Hx Gastroesophageal Reflux Disease: No - Endocrine Hx End Stage Renal Disease: No - Other Systems Hx Alcohol Use: Yes (at least weekly) Hx Substance Use: Yes (admits to experimenting including cocaine and meth) Hx Cancer: No
--- NOTE | 2017-11-18 16:14 | Anesthesia Day of Surgery ---
Anesthesia Day of Surgery - Day of Surgery Patient Examined: Yes Patient H&P Reviewed: Yes Patient is NPO: Yes Beta Blockers: Yes Cardiac Clearance: Yes Pulmonary Clearance: Yes
[2017-11-18] MEDS: LACTATED RINGERS 1,000 ML IV SCH ×2 (16:50→18:02)
[2017-11-18] MEDS ORDERED: VERSED IV NR (17:00)
[2017-11-18] MEDS ORDERED: PEPCID PO NR (17:00)
--- NOTE | 2017-11-18 17:31 | Magnetic Resonance Report ---
FINAL REPORT PROCEDURE: MRI pelvis including the penis without contrast. TECHNIQUE: Magnetic resonance imaging of the pelvis was performed using standard sequences. CPT 92047 HISTORY: Possible abscess. COMPARISON: CT abdomen and pelvis 11/16/2017. FINDINGS: The girth of the penis may have decreased since the previous CT scan. There are no focal fluid collections within the penis to suggest an abscess. There are no abnormal fluid collections within the pelvis to suggest an abscess. There is no fluid within the scrotum. The bladder, seminal vesicles and prostate are unremarkable. The pelvic musculature and bones have normal signal intensity. There are numerous bilateral inguinal lymph nodes. The largest lymph node is in the left inguinal region measuring 2.2 centimeters x 1.4 centimeters in cross-section. IMPRESSION: Numerous bilateral inguinal lymph nodes. No evidence of an abscess in the penis nor pelvis.
--- NOTE | 2017-11-18 20:10 | Post Anesthesia Evaluation ---
- Post Anesthesia Evaluation Patient Participated: No (Patient sedated for return to the ICU) Airway Patent: Yes (trach remains the ventilation site) Stable Respiratory Function: Yes (with ventilator of which he arrived on ) Temp > 96.8F: Yes Adequeate Hydration: Yes Anesthesia Complications: No Block Receding Appropriately: Not Applicable Patient on Ventilator: Yes (Patient to return to ICU)
[2017-11-19] MEDS: MORPHINE IV PRN ×4 (01:32→20:07)
[2017-11-19] MEDS: ZOVIRAX 700 MG in NACL 0.9% 100 ML IV SCH ×3 (06:32→21:39)
[2017-11-19] MEDS ORDERED: VERSED IV NR (09:10)
[2017-11-19] MEDS: NACL 0.9% 1000 ML 1,000 ML IV SCH (09:32)
[2017-11-19] MEDS ORDERED: PEPCID PO NR (10:00)
[2017-11-19] MEDS: VIBRAMYCIN PO SCH ×2 (10:00→21:39)
[2017-11-19] MEDS: HABITROL TD SCH (10:00)
[2017-11-19] MEDS: LEVAQUIN 750MG/150ML 750 MG/150 ML BAG IV SCH (10:00)
[2017-11-19] MEDS: LOVENOX SUB-Q SCH (10:00)
[2017-11-19] MEDS: VANCOMYCIN 1,500 MG in NACL 0.9% 500 ML 500 ML IV SCH (10:09)
[2017-11-19] MEDS ORDERED: MARCAINE 0.5% 0 ML INFILTRATI ONE (10:38)
[2017-11-19] MEDS ORDERED: XYLOCAINE 1% 20 mL ONE (10:38)
--- NOTE | 2017-11-19 11:00 | Anesthesia Day of Surgery ---
Anesthesia Day of Surgery - Day of Surgery Patient Examined: Yes Patient H&P Reviewed: Yes Patient is NPO: Yes Beta Blockers: Yes Cardiac Clearance: Yes Pulmonary Clearance: Yes
[2017-11-19] MEDS ORDERED: DIPRIVAN 10 MG/ML IV ONE (11:14)
[2017-11-19] MEDS ORDERED: SUBLIMAZE ONE (11:14)
[2017-11-19] MEDS ORDERED: XYLOCAINE MPF 2% ONE ×2 (11:15)
[2017-11-19] MEDS ORDERED: DECADRON ONE (11:15)
[2017-11-19] MEDS ORDERED: TORADOL ONE (11:16)
[2017-11-19] MEDS ORDERED: NACL 0.9% 250ML IRRIGATION ONE (11:39)
[2017-11-19] MEDS: DILAUDID IV PRN ×4 (12:03→12:45)
--- NOTE | 2017-11-19 12:18 | Post Operative Note ---
Date of procedure: 11/19/17 Pre-op diagnosis: penile abcess Post-op diagnosis: same Findings: penile abcess Procedure: i and d penile abcess Anesthesia: GETA Surgeon: SCOTT ASHLEY Estimated blood loss: minimal Pathology: list (abcess) Specimen disposition: to lab Condition: stable Disposition: PACU
--- NOTE | 2017-11-19 13:19 | Post Anesthesia Evaluation ---
- Post Anesthesia Evaluation Patient Participated: Yes Airway Patent: Yes Stable Respiratory Function: Yes Nausea/Vomiting: No Temp > 96.8F: Yes Pain Manageable: Yes Adequeate Hydration: Yes Anesthesia Complications: No Block Receding Appropriately: Not Applicable
--- NOTE | 2017-11-19 13:58 | Operative Report ---
PREOPERATIVE DIAGNOSIS: Penile abscess. POSTOPERATIVE DIAGNOSIS: Penile abscess. PROCEDURE: Incision and drainage of penile abscess. SURGEON: Shekhar Foss MD. ANESTHESIA: General. FINDINGS: This is a gentleman who presented with an abscess, whether there was an injection or a bite, I do not know, but there is a big abscess extending from the right dorsum of the penis extending towards the groin. He now presents for drainage. DESCRIPTION OF PROCEDURE: The patient was brought to the operating room and placed on the table. Following induction of anesthesia, placed in the supine position, prepped and draped in usual sterile fashion. The area was opened up and a large amount of purulent material was evacuated. Cultures were obtained. Some of the skin was necrotic and debrided. We approximated some of the skin very loosely with chromic and Vicryl and secured the Marci drain in place. The patient tolerated the procedure well and brought to recovery room in stable condition. JOB# [id number] ALEKS/VINNY
--- NOTE | 2017-11-19 14:56 | Progress Note ---
<PRATIMA ALVARES - Last Filed: 11/20/17 08:35> Assessment and Plan Assessment and plan: This is a 47-year-old male who was previously on known to this provider, patient 's does not have a local primary care doctor, and endorses a past history of IV methamphetamine abuse within the past month. Patient reports that a few days ago he had a sore on the dorsal aspect of his penis, and "picked it off." Shortly thereafter developed diffuse penile pain and swelling, left-sided testicular pain, right lower quadrant pain and right lower back pain. He endorses fevers, chills and body aches. He thinks that he has the flu. He denies severe headache, neck pain, chest pain, shortness of breath, irritative urinary symptoms. His pain is constant, does not radiate anywhere, it increases with palpation and decreases with rest Penile cellulitis Urology and ID following Pt to continue vanco, zosyn, doxy, IV acyclovir stop tamiflu f/u HIV, RPR, GC and chlamydia Status post surgical I&D of penile abscess MRI pelvis showed bilateral inguinal lymph nodes, no evidence of abscess in penis and pelvis Sepsis affecting skin Improving, continue antibiotics, ID following Current nicotine use Patient counseled on cessation, nicotine patch ordered DVT prophylaxis Lovenox History Interval history: Patient was seen and examined. He is resting comfortably, continues to complain of penile pain. He denies CP, SOB, NV. Nursing notes, labs and imaging reviewed. Hospitalist Physical - Constitutional Vitals: Temp Pulse Resp BP Pulse Ox 97.5 F L 58 L 20 101/63 100 11/19/17 14:20 11/19/17 14:20 11/19/17 14:20 11/19/17 14:20 11/19/17 14:20 General appearance: Present: no acute distress, well-nourished - EENT Eyes: Present: PERRL, EOM intact ENT: hearing intact, clear oral mucosa - Neck Neck: Present: supple, normal ROM - Respiratory Respiratory effort: normal Respiratory: bilateral: CTA - Cardiovascular Rhythm: regular Heart Sounds: Present: S1 & S2 - Extremities Extremities: no ischemia, No edema - Abdominal General gastrointestinal: soft, non-tender, non-distended - Integumentary Integumentary: Present: clear, warm, dry - Psychiatric Psychiatric: appropriate mood/affect, cooperative - Neurologic Neurologic: CNII-XII intact, moves all extremities - Allied Health Allied health notes reviewed: nursing Results - Labs CBC & Chem 7: 11/18/17 05:15 11/18/17 05:15 Labs: Laboratory Last Values WBC 10.4 K/mm3 (4.5-11.0) 11/18/17 05:15 RBC 4.01 M/mm3 (3.65-5.03) 11/18/17 05:15 Hgb 12.5 gm/dl (11.8-15.2) 11/18/17 05:15 Hct 39.0 % (35.5-45.6) 11/18/17 05:15 MCV 90 fl (84-94) 11/18/17 05:15 MCH 31 pg (28-32) 11/18/17 05:15 MCHC 34 % (32-34) 11/18/17 05:15 RDW 13.5 % (13.2-15.2) 11/18/17 05:15 Plt Count 208 K/mm3 (140-440) 11/18/17 05:15 Lymph % (Auto) [employer] 11/17/17 04:00 Morgan % (Auto) [employer] 11/17/17 04:00 Eos % (Auto) [employer] 11/17/17 04:00 Baso % (Auto) [employer] 11/17/17 04:00 Lymph # [employer] 11/17/17 04:00 Morgan # [employer] 11/17/17 04:00 Eos # [employer] 11/17/17 04:00 Baso # [employer] 11/17/17 04:00 Seg Neutrophils % [employer] 11/17/17 04:00 Seg Neutrophils # [employer] 11/17/17 04:00 Sodium 137 mmol/L (137-145) 11/18/17 05:15 Potassium 3.7 mmol/L (3.6-5.0) 11/18/17 05:15 Chloride 102.2 mmol/L (98-107) 11/18/17 05:15 Carbon Dioxide 22 mmol/L (22-30) 11/18/17 05:15 Anion Gap 17 mmol/L 11/18/17 05:15 BUN 6 mg/dL (9-20) L 11/18/17 05:15 Creatinine 0.8 mg/dL (0.8-1.5) 11/18/17 05:15 Estimated GFR > 60 ml/min 11/18/17 05:15 BUN/Creatinine Ratio 8 % 11/18/17 05:15 Glucose 138 mg/dL (75-100) H 11/18/17 05:15 POC Glucose 102 (70-105) 11/19/17 12:14 Lactic Acid 0.90 mmol/L (0.7-2.0) 11/16/17 23:48 Calcium 8.5 mg/dL (8.4-10.2) 11/18/17 05:15 C-Reactive Protein 9.90 mg/dL (0.00-1.30) H 11/17/17 Unknown Urine Color Yellow (Yellow) 11/16/17 18:18 Urine Turbidity Clear (Clear) 11/16/17 18:18 Urine pH 7.0 (5.0-7.0) 11/16/17 18:18 Ur Specific [place] 1.024 (1.003-1.030) 11/16/17 18:18 Urine Protein 30 mg/dl mg/dL (Negative) 11/16/17 18:18 Urine Glucose (UA) Neg mg/dL (Negative) 11/16/17 18:18 Urine Ketones 20 mg/dL (Negative) 11/16/17 18:18 Urine Blood Neg (Negative) 11/16/17 18:18 Urine Nitrite Neg (Negative) 11/16/17 18:18 Urine Bilirubin Neg (Negative) 11/16/17 18:18 Urine Urobilinogen 4.0 mg/dL (<2.0) 11/16/17 18:18 Ur Leukocyte Esterase Neg (Negative) 11/16/17 18:18 Urine WBC (Auto) 5.0 /HPF (0.0-6.0) 11/16/17 18:18 Urine RBC (Auto) 20.0 /HPF (0.0-6.0) 11/16/17 18:18 U Epithel Cells (Auto) 1.0 /HPF (0-13.0) 11/16/17 18:18 Urine Mucus Few /HPF 11/16/17 18:18 Vancomycin Trough 8.9 ug/mL (5.0-20.0) 11/18/17 20:48 RPR Nonreactive (Nonreactive) 11/17/17 19:36 HIV 1&2 Antibody Rapid N (Non React) 11/17/17 19:36 HIV P24 Antigen N (Non React) 11/17/17 19:36 <AKHIL MEADOWS R - Last Filed: 11/20/17 08:44> Assessment and Plan Assessment and plan: I saw and evaluated the patient on 11/19/17. I agree with the findings and the plan of care as documented in the Nurse Practitioner's~note, with the following corrections and additions. - continue vanco, zosyn, doxy and acyclovir for now- Plan to narrow spectrum tomorrow per ID Hospitalist Physical - Constitutional Vitals: Temp Pulse Resp BP Pulse Ox 97.5 F L 61 20 96/53 97 11/19/17 14:20 11/19/17 15:25 11/19/17 15:25 11/19/17 15:25 11/19/17 20:59 Results - Labs CBC & Chem 7: 11/18/17 05:15 11/18/17 05:15 Labs: Laboratory Last Values WBC 10.4 K/mm3 (4.5-11.0) 11/18/17 05:15 RBC 4.01 M/mm3 (3.65-5.03) 11/18/17 05:15 Hgb 12.5 gm/dl (11.8-15.2) 11/18/17 05:15 Hct 39.0 % (35.5-45.6) 11/18/17 05:15 MCV 90 fl (84-94) 11/18/17 05:15 MCH 31 pg (28-32) 11/18/17 05:15 MCHC 34 % (32-34) 11/18/17 05:15 RDW 13.5 % (13.2-15.2) 11/18/17 05:15 Plt Count 208 K/mm3 (140-440) 11/18/17 05:15 Lymph % (Auto) [employer] 11/17/17 04:00 Morgan % (Auto) [employer] 11/17/17 04:00 Eos % (Auto) [employer] 11/17/17 04:00 Baso % (Auto) [employer] 11/17/17 04:00 Lymph # [employer] 11/17/17 04:00 Morgan # [employer] 11/17/17 04:00 Eos # [employer] 11/17/17 04:00 Baso # [employer] 11/17/17 04:00 Seg Neutrophils % [employer] 11/17/17 04:00 Seg Neutrophils # [employer] 11/17/17 04:00 Sodium 137 mmol/L (137-145) 11/18/17 05:15 Potassium 3.7 mmol/L (3.6-5.0) 11/18/17 05:15 Chloride 102.2 mmol/L (98-107) 11/18/17 05:15 Carbon Dioxide 22 mmol/L (22-30) 11/18/17 05:15 Anion Gap 17 mmol/L 11/18/17 05:15 BUN 6 mg/dL (9-20) L 11/18/17 05:15 Creatinine 0.8 mg/dL (0.8-1.5) 11/18/17 05:15 Estimated GFR > 60 ml/min 11/18/17 05:15 BUN/Creatinine Ratio 8 % 11/18/17 05:15 Glucose 138 mg/dL (75-100) H 11/18/17 05:15 POC Glucose 102 (70-105) 11/19/17 12:14 Lactic Acid 0.90 mmol/L (0.7-2.0) 11/16/17 23:48 Calcium 8.5 mg/dL (8.4-10.2) 11/18/17 05:15 C-Reactive Protein 9.90 mg/dL (0.00-1.30) H 11/17/17 Unknown Urine Color Yellow (Yellow) 11/16/17 18:18 Urine Turbidity Clear (Clear) 11/16/17 18:18 Urine pH 7.0 (5.0-7.0) 11/16/17 18:18 Ur Specific [place] 1.024 (1.003-1.030) 11/16/17 18:18 Urine Protein 30 mg/dl mg/dL (Negative) 11/16/17 18:18 Urine Glucose (UA) Neg mg/dL (Negative) 11/16/17 18:18 Urine Ketones 20 mg/dL (Negative) 11/16/17 18:18 Urine Blood Neg (Negative) 11/16/17 18:18 Urine Nitrite Neg (Negative) 11/16/17 18:18 Urine Bilirubin Neg (Negative) 11/16/17 18:18 Urine Urobilinogen 4.0 mg/dL (<2.0) 11/16/17 18:18 Ur Leukocyte Esterase Neg (Negative) 11/16/17 18:18 Urine WBC (Auto) 5.0 /HPF (0.0-6.0) 11/16/17 18:18 Urine RBC (Auto) 20.0 /HPF (0.0-6.0) 11/16/17 18:18 U Epithel Cells (Auto) 1.0 /HPF (0-13.0) 11/16/17 18:18 Urine Mucus Few /HPF 11/16/17 18:18 Vancomycin Trough 8.9 ug/mL (5.0-20.0) 11/18/17 20:48 RPR Nonreactive (Nonreactive) 11/17/17 19:36 HIV 1&2 Antibody Rapid N (Non React) 11/17/17 19:36 HIV P24 Antigen N (Non React) 11/17/17 19:36
[2017-11-19] MEDS: VANCOMYCIN 1,250 MG in NACL 0.9% 250ML 250 ML IV SCH (17:45)
--- NOTE | 2017-11-19 20:28 | Progress Note ---
Assessment and Plan Assessment: 1) Sepsis: better. Etiology most likely penile abscess. CRP=9.9 2) Penile abscess / initial painful penile lesion: initial lesion unclear etiology ? HSV (given partner positive for HSV) with superimposed bacterial infection versus folliculitis versus LVG (doubt since LVG is painless) versus Chancroid (it is painful but rare in [place]). -Penis MRI neg for abscess -s/p OR I+D with purulence obtained -RPR neg 3) IV amphetamine user 4) Cough: CXR neg. Influenza Ag neg Plan: -f/u OR cultures -contact isolation until MRSA is r/o -continue vanco, zosyn, doxy and acyclovir for now-will narrow spectrum tomorrow -stop tamiflu -f/u HIV GC and chlamydia Thank you VINCENT Ceballos for your consultation, will follow up with you. Shantelle Desai MD Infectious Diseases Specialist [facility] ([facility]) M [phone] O [phone] Subjective Date of service: 11/19/17 Principal diagnosis: penile lesion edema Interval history: feels better, fever trending down, went to the OR Microbiology: Blood cultures: 11/16 ngtd Influenza: neg Current Antimicrobials: Tamiflu Levaquin Vancomycin Doxy Acyclovir Previous Antimicrobials: Objective - Exam Narrative Exam: General appearance: Alert in NAD, conversant Eyes: anicteric sclerae, moist conjunctivae; no lid-lag; PERRLA HENT: Atraumatic; oropharynx clear Neck: Trachea midline; supple, no thyromegaly or lymphadenopathy Lungs: CTA CV: RRR, no murmurs Abdomen: Soft, non-tender; no masses or hepatosplenomegaly Extremities: No peripheral edema or extremity lymphadenopathy Skin: Normal temperature, turgor and texture; no rash, ulcers or subcutaneous nodules Gen: marked penile edema with drain draining pus Psych: Appropriate affect, alert and oriented to person, place and time. Neuro: alert and oriented x 3. Moving all extermities Lines: No CVL / PICC - Constitutional Vitals: Vital Signs Temp Pulse Resp BP Pulse Ox 97.5 F L 61 20 96/53 99 11/19/17 14:20 11/19/17 15:25 11/19/17 15:25 11/19/17 15:25 11/19/17 15:25 Temperature -Last 24 Hours Temperature 97.5 F Temperature 97.5 F Temperature 97.3 F Temperature 99.0 F Temperature 97.6 F Temperature 99.7 F Temperature 99.7 F Temperature 99.4 F Temperature 98.2 F - Labs CBC & Chem 7: 11/18/17 05:15 11/18/17 05:15
[2017-11-20] MEDS: MORPHINE IV PRN ×2 (00:47→05:33)
[2017-11-20] MEDS: PERCOCET 5/325 PO PRN ×2 (02:04→14:44)
[2017-11-20] MEDS: VANCOMYCIN 1,250 MG in NACL 0.9% 250ML 250 ML IV SCH ×2 (02:05→12:00)
[2017-11-20] MEDS: NACL 0.9% 1000 ML 1,000 ML IV SCH (05:45)
[2017-11-20] MEDS: ZOVIRAX 700 MG in NACL 0.9% 100 ML IV SCH (05:46)
--- NOTE | 2017-11-20 08:31 | Progress Note ---
Assessment and Plan improved ok to discharge with drain antibiotics per ID f/u 5 days Subjective Date of service: 11/20/17 Principal diagnosis: penile lesion edema Objective - Constitutional Vitals: Vital Signs - 12hr 11/19/17 11/20/17 11/20/17 20:59 04:33 07:35 Temperature 97.7 F 97.8 F Pulse Rate 65 69 Respiratory 18 20 Rate Blood Pressure 94/55 93/42 O2 Sat by Pulse 97 97 97 Oximetry General appearance: Present: no acute distress - Respiratory Respiratory effort: normal Extremities: no ischemia - Genitourinary Male genitourinary: asymmetrical (healing .. less drainage ) - Labs CBC & Chem 7: 11/18/17 05:15 11/18/17 05:15
[2017-11-20] MEDS: LOVENOX SUB-Q SCH (10:00)
[2017-11-20] MEDS: LEVAQUIN 750MG/150ML 750 MG/150 ML BAG IV SCH (10:00)
[2017-11-20] MEDS: HABITROL TD SCH (10:00)
--- NOTE | 2017-11-20 10:07 | Progress Note ---
Assessment and Plan Assessment: 1) Sepsis: better. Etiology most likely penile abscess. CRP=9.9 2) Penile abscess / initial painful penile lesion: initial lesion unclear etiology ? HSV (given partner positive for HSV) with superimposed bacterial infection versus folliculitis versus LVG (doubt since LVG is painless) versus Chancroid (it is painful but rare in [place]). -Penis MRI neg for abscess -s/p OR I+D with purulence obtained -RPR neg -surgical culture positive for MRSA 3) IV amphetamine user 4) Cough: CXR neg. Influenza Ag neg Plan: -continue contact isolation for MRSA -continue doxycycline day 4 and vancomycin day 5 -stop levaquin and acyclovir -f/u GC and chlamydia -upon discharge will do zyvox 600 mg po q 12 hrs x 14 days, continue doxycycline 100 mg po to complete 14 days -follow up with Urologist Thank you VINCENT Ceballos for your consultation, will follow up with you. GORDON Ny for Dr. Shantelle Desai MD Infectious Diseases Specialist [facility] M [phone] Subjective Date of service: 11/20/17 Principal diagnosis: penile lesion edema Interval history: I feel better, no fever Microbiology: Blood cultures: 11/16 ngtd Influenza: neg Foreskin surgical culture positive for MRSA Current Antimicrobials: Vancomycin 11/16 Doxy 11/17 Previous Antimicrobials: Tamiflu Levaquin Acyclovir Objective - Exam Narrative Exam: General appearance: Alert in NAD, conversant Eyes: anicteric sclerae, moist conjunctivae; no lid-lag; PERRLA HENT: Atraumatic; oropharynx clear Neck: Trachea midline; supple, no thyromegaly or lymphadenopathy Lungs: CTA CV: RRR, no murmurs Abdomen: Soft, non-tender; no masses or hepatosplenomegaly Extremities: No peripheral edema or extremity lymphadenopathy Skin: Normal temperature, turgor and texture; no rash, ulcers or subcutaneous nodules Gen: marked penile edema with drain draining pus Psych: Appropriate affect, calm and cooperative Neuro: alert and oriented x 3. Moving all extermities Lines: No CVL / PICC - Constitutional Vitals: Vital Signs Temp Pulse Resp BP Pulse Ox 97.8 F 69 20 93/42 97 11/20/17 07:35 11/20/17 07:35 11/20/17 07:35 11/20/17 07:35 11/20/17 07:35 Temperature -Last 24 Hours Temperature 97.8 F Temperature 97.7 F Temperature 97.5 F Temperature 97.5 F Temperature 97.3 F Temperature 99.0 F Temperature 97.6 F - Labs CBC & Chem 7: 11/18/17 05:15 11/18/17 05:15
[2017-11-20] MEDS ORDERED: MORPHINE IV PRN (10:26)
[2017-11-20] MEDS: VIBRAMYCIN PO SCH (11:58)
--- NOTE | 2017-11-20 13:19 | Discharge Summary ---
Providers - Providers Date of Admission: 11/16/17 22:42 Date of discharge: 11/20/17 Attending physician: AKHIL MEADOWS 11/17/17 12:21 Consult to Physician [CONS] Routine Consulting Provider: VADIM GUERRIER Reason For Exam: Penile swelling Place consult to:: DR. ASHLEY Notified:: DR. ASHLEY 11/17/17 12:24 Consult to Physician [CONS] Routine Consulting Provider: RYLIE POSADA Reason For Exam: sepsis Place consult to:: dr. bruno Notified:: Phone number called:: [phone] Was contact made?: Yes If yes, spoke with:: dr. bruno Time called:: 16:38 Primary care physician: SALLY RIDDLE Hospitalization Condition: Good Pertinent studies: CT abdomen showed no acute intra-abdominal abnormality Chest x-ray showed known underlying emphysema MRI pelvis showed bilateral inguinal lymph nodes, no evidence of abscess in penis and pelvis Testicular ultrasound showed small cysts in the right epididymis, otherwise normal testicular ultrasound Hospital course: This is a 47-year-old male who was previously on known to this provider, patient 's does not have a local primary care doctor, and endorses a past history of IV methamphetamine abuse within the past month. Patient reports that a few days ago he had a sore on the dorsal aspect of his penis, and "picked it off." Shortly thereafter developed diffuse penile pain and swelling, left-sided testicular pain, right lower quadrant pain and right lower back pain. He endorses fevers, chills and body aches. He thinks that he has the flu. He denies severe headache, neck pain, chest pain, shortness of breath, irritative urinary symptoms. His pain is constant, does not radiate anywhere, it increases with palpation and decreases with rest Patient was found to have an abscess on the penile shaft. He was taken to the OR for I&D which was without complication. Patient was treated with IV antibiotics and was discharged with same. Patient given instructions to follow up with urologist upon discharge. Penile cellulitis Likely secondary to underlying abscess Sepsis affecting skin Likely due to penile abscess Current nicotine use Patient counseled on cessation, nicotine patch ordered DVT prophylaxis Lovenox Disposition: TO HOME OR SELFCARE Time spent for discharge: 35 minutes Core Measure Documentation - Palliative Care Palliative Care/ Comfort Measures: Not Applicable - Core Measures Any of the following diagnoses?: none Exam - Constitutional Vitals: Temp Pulse Resp BP Pulse Ox 97.8 F 69 20 93/42 100 11/20/17 07:35 11/20/17 07:35 11/20/17 07:35 11/20/17 07:35 11/20/17 10:00 General appearance: Present: no acute distress, well-nourished - EENT Eyes: Present: PERRL ENT: hearing intact, clear oral mucosa - Neck Neck: Present: supple, normal ROM - Respiratory Respiratory effort: normal Respiratory: bilateral: CTA - Cardiovascular Heart Sounds: Present: S1 & S2. Absent: rub, click - Extremities Extremities: pulses symmetrical, No edema Peripheral Pulses: within normal limits - Abdominal General gastrointestinal: Present: soft, non-tender, non-distended, normal bowel sounds Male genitourinary: Present: tender (surgical sutures with drain ) - Integumentary Integumentary: Present: clear, warm, dry - Musculoskeletal Musculoskeletal: gait normal, strength equal bilaterally - Psychiatric Psychiatric: appropriate mood/affect, intact judgment & insight - Neurologic Neurologic: CNII-XII intact, moves all extremities - Allied Health Allied health notes reviewed: nursing Plan Activity: advance as tolerated Weight Bearing Status: Weight Bear as Tolerated Diet: regular, per dietitian instruction Wound: per your surgeon's advice Follow up with: SALLY RIDDLE MD [Primary Care Provider] - 3-5 Days SCOTT ASHLEY MD [Staff Physician] - 7 Days Prescriptions: Doxycycline Hyclate [Vibramycin] 100 mg PO DAILY #10 capsule Linezolid [Zyvox] 600 mg PO BID #28 tablet oxyCODONE /ACETAMINOPHEN [Percocet 5/325 mg] 1 tab PO Q4H PRN #12 tablet PRN Reason: Pain, Moderate (4-6)
[2017-11-20 15:31] VITALS: BP 101/63
== END 2017-11-20 17:00 | disposition home or self-care (01) | DRG 855 ==
LOC: ED 17:56 → 3A 22:42
PROVIDERS: ADMIT Internal Medicine; ATTEND Internal Medicine
PROC: 0V9SXZZ Drainage of Penis, External Approach (ICD-10-PCS; principal; 2017-11-19)
PROC: 0VBSXZZ Excision of Penis, External Approach (ICD-10-PCS; 2017-11-19)
DX: A41.9 Sepsis, unspecified organism (principal); F15.90 Other stimulant use, unspecified, uncomplicated; F17.200 Nicotine dependence, unspecified, uncomplicated; N48.22 Cellulitis of corpus cavernosum and penis; N48.21 Abscess of corpus cavernosum and penis; Z72.89 Other problems related to lifestyle; Z82.49 Family history of ischemic heart disease and other diseases of the circulatory system; Z88.0 Allergy status to penicillin; Z79.899 Other long term (current) drug therapy; Z79.2 Long term (current) use of antibiotics
CPT/HCPCS: 36415; 71045; 72195; 74177; 80048; 80202; 81001; 82140; 82962; 85025; 85027; 86140; 86403; 86592; 86695; 86696; 87040; 87075; 87086; 87116; 87186; 87400; 87806; 88305; 93005; 93010; 93975; 96361; 96365; 96366; 96375; J0133; J1100; J1170; J1650; J1885; J1956; J2250; J2270; J2405; J2704; J3010; J3370; J7030; J7040; J7050; J7120; Q9967

== ENCOUNTER 2017-11-21 01:07 | Inpatient (IN) | payer SELFPAY ==
[2017-11-21] MEDS ORDERED: MORPHINE IV ONE (02:07)
[2017-11-21] MEDS ORDERED: ZOFRAN IV ONE ×2 (02:09→02:10)
[2017-11-21] MEDS ORDERED: NACL 0.9% 1000 ML 1,000 ML IV ONE (02:10)
[2017-11-21] MEDS ORDERED: DILAUDID IV ONE (02:10)
[2017-11-21 02:34] LABS: Basophils # (Auto) 0.1 K/mm3 (0.0-0.1); Basophils % (Auto) 1.1 % (0.0-1.8); Eosinophils # (Auto) 0.4 K/mm3 (0.0-0.4); Eosinophils % (Auto) 3.4 % (0.0-4.3); Hematocrit 20.5 % (35.5-45.6); Hemoglobin 7.2 gm/dl (11.8-15.2); Lymphocytes # (Auto) 3.3 K/mm3 (1.2-5.4); Lymphocytes % (Auto) 31.8 % (13.4-35.0); Mean Corpuscular HGB Conc 35 % (32-34); Mean Corpuscular Hemoglobin 32 pg (28-32); Mean Corpuscular Volume 91 fl (84-94); Monocytes # (Auto) 1.2 K/mm3 (0.0-0.8); Monocytes % (Auto) 11.6 % (0.0-7.3); Platelet Count 469 K/mm3 (140-440); Red Blood Count 2.26 M/mm3 (3.65-5.03); Red Cell Distribution Width 13.5 % (13.2-15.2)
--- NOTE | 2017-11-21 02:40 | Emergency Department Report ---
ED Male HPI - General Chief complaint: Urogenital-Male Stated complaint: PENILE PAIN Time Seen by Provider: 11/21/17 02:01 Source: EMS Mode of arrival: Ambulatory Limitations: No Limitations - History of Present Illness Initial comments: 47-year-old male male with a past medical history of methamphetamine abuse and recent surgery for penile abscess presents to the hospital complaints of opening of the now postsurgical wound. Patient was admitted here the 25th for sepsis, penile abscess, and had a I&D performed by urology with surgical drain placed. Patient was discharged on Zyvox and doxycycline. Patient was able to get doxycycline filled with the pharmacist did not have Zyvox available. Social 30 a.m. patient woke up to use a bedside urinal and noticed that he was able to see the distal part of the wound drain and opening of the sutures to his penis. Pain reported to be 8/10 in intensity and worse with palpation. - Related Data Previous Rx's Medication Instructions Recorded Last Taken Type Doxycycline Hyclate [Vibramycin] 100 mg PO DAILY #10 capsule 11/20/17 Unknown Rx Linezolid [Zyvox] 600 mg PO BID #28 tablet 11/20/17 Unknown Rx oxyCODONE /ACETAMINOPHEN [Percocet 1 tab PO Q4H PRN #12 tablet 11/20/17 Unknown Rx 5/325 mg] Allergies Allergy/AdvReac Type Severity Reaction Status Date / Time Penicillins Allergy Hives Verified 10/12/13 22:28 ED Review of Systems ROS: Stated complaint: PENILE PAIN Other details as noted in HPI Comment: All other systems reviewed and negative Other: Constitutional: No fevers chills Eyes: No eye pain visual changes ENT: No ear pain or throat pain Neck: Denies pain Respiratory: Denies cough wheezing shortness of breath Cardiovascular: Denies chest pain, palpitations, syncope GI: Denies abdominal pain, nausea, vomiting, diarrhea : As in HPI Musculoskeletal: Denies back pain Skin: Denies rash, lesions, erythema Neurologic: Denies headache, numbness, weakness Psychiatric: Denies suicidal ideation, hallucinations ED Past Medical Hx - Past Medical History Previous Medical History?: No Hx Hypertension: No Hx Congestive Heart Failure: No Hx Diabetes: No Hx Asthma: No Hx COPD: No Hx HIV: No - Surgical History Past Surgical History?: Yes Additional Surgical History: Jaw reconstruction, penile cyst surgery - Social History Smoking Status: Current Every Day Smoker - Medications Home Medications: Home Medications Medication Instructions Recorded Confirmed Last Taken Type Doxycycline Hyclate [Vibramycin] 100 mg PO DAILY #10 capsule 11/20/17 Unknown Rx Linezolid [Zyvox] 600 mg PO BID #28 tablet 11/20/17 Unknown Rx oxyCODONE /ACETAMINOPHEN [Percocet 1 tab PO Q4H PRN #12 tablet 11/20/17 Unknown Rx 5/325 mg] ED Physical Exam - General Limitations: No Limitations - Other Other exam information: General: No limitations, patient is alert in no acute distress Head exam: Atraumatic, normocephalic Eyes exam: Normal appearance ENT: Moist mucous membrane, normal oropharynx Neck exam: Normal inspection, full range of motion Respiratory exam: Clear to auscultation bilateral, no wheezes, rales, crackles Cardiovascular: Normal rate and rhythm, normal heart sounds Abdomen: Soft, nondistended, and nontender, with normal bowel sounds, no rebound, or guarding : Patient is circumcised, Proximal penile drain noted to the right side of the penis, distant opening noted with dehiscence of wound with sutures noted and distal portion of the penile drainage is noted. Extremity: Full range of motion normal inspection no deformity Back: Normal Inspection, full range of motion, no tenderness Neurologic: Alert, oriented x3, cranial nerves intact, no motor or sensory deficit Psychiatric: normal affect, normal mood Skin: Warm, dry, intact ED Course Vital Signs 11/21/17 01:43 Temperature 97.4 F L Pulse Rate 70 Respiratory 18 Rate Blood Pressure 118/68 [Right] O2 Sat by Pulse 97 Oximetry - Consultations Consultation #1: 11/21/17 03:06 Case discussed with urologist Dr. Domínguez. Will evaluate patient during admission ED Medical Decision Making - Lab Data Result diagrams: 11/21/17 02:10 11/21/17 02:10 Lab Results 11/21/17 11/21/17 Range/Units 02:10 02:10 WBC 10.4 (4.5-11.0) K/mm3 RBC 2.26 L (3.65-5.03) M/mm3 Hgb 7.2 L D (11.8-15.2) gm/dl Hct 20.5 L D (35.5-45.6) % MCV 91 (84-94) fl MCH 32 (28-32) pg MCHC 35 H (32-34) % RDW 13.5 (13.2-15.2) % Plt Count 469 H D (140-440) K/mm3 Lymph % (Auto) 31.8 (13.4-35.0) % [place] % (Auto) 11.6 H (0.0-7.3) % Eos % (Auto) 3.4 (0.0-4.3) % Baso % (Auto) 1.1 (0.0-1.8) % Lymph # 3.3 (1.2-5.4) K/mm3 [place] # 1.2 H (0.0-0.8) K/mm3 Eos # 0.4 (0.0-0.4) K/mm3 Baso # 0.1 (0.0-0.1) K/mm3 Seg Neutrophils % 52.1 (40.0-70.0) % Seg Neutrophils # 5.4 (1.8-7.7) K/mm3 Sodium 140 (137-145) mmol/L Potassium 4.5 D (3.6-5.0) mmol/L Chloride 101.2 (98-107) mmol/L Carbon Dioxide 27 (22-30) mmol/L Anion Gap 16 mmol/L BUN 8 L (9-20) mg/dL Creatinine 0.7 L (0.8-1.5) mg/dL Estimated GFR > 60 ml/min BUN/Creatinine Ratio 11 % Glucose 81 (75-100) mg/dL Calcium 8.5 (8.4-10.2) mg/dL - Medical Decision Making Penile wound dehiscence Urologist informed Will evaluate patient in the hospital Anemia Significant drop compared to the Pt is Jehovah witness and does not want blood products Patient will be admitted to monitor H&H to ensure stability prior to discharge Patient denies melena or hematochezia - Differential Diagnosis wound dehiscence, penile abscess, Critical Care Time: No Critical care attestation.: If time is entered above; I have spent that time in minutes in the direct care of this critically ill patient, excluding procedure time. ED Disposition Clinical Impression: Wound, open, penis, Postoperative wound dehiscence, Anemia Disposition: OP ADMIT IP TO THIS HOSP Is pt being admited?: Yes Condition: Stable Time of Disposition: 03:41 (Dr. Govea/hosp)
[2017-11-21 02:43] LABS: BUN/Creatinine Ratio 11; Blood Urea Nitrogen 8 mg/dL (9-20); Calcium 8.5 mg/dL (8.4-10.2); Hemolysis Index 99
--- NOTE | 2017-11-21 05:23 | History and Physical Report ---
History of Present Illness Date of examination: 11/21/17 Date of admission: 11/21/17 03:42 Chief complaint: Opening of the new post surgical wound History of present illness: 47 year old -[place] male with past medical history significant for penile abscess status post incision and drainage of this abscess, methamphetamine use was discharged yesterday from the hospital after he was admitted for sepsis, pain and abscess. He was treated with IV antibiotics and given prescription for by mouth Zyvox and doxycycline but he couldn't refill his medications. Urology was consulted and did drainage of abscess. Patient has a draining tube left on the abscess site and he felt a flap and both sides of the draining tube are on the outside and patient presented back to the ED. Urology was consuulted and recommended the wound will get better on time. In the ED blood work was done and hemoglobin dropped from 12.5 to 7.2. No symptoms. patient is Johva witness and will not take any blood. ED talked with Dr Marino and recommend for follow up of the H/H. repeat H/H is pending. REVIEW OF SYSTEMS: GENERAL: no weight change, no fatigue, no fever HEAD: no head ache EYES: no blurry vision, no acute visual loss EARS: no hearing loss, no discharge, no earache NOSE: no stuffiness, no sneezing, no discharge MOUTH, THROAT AND NECK: no bleeding gums, no sore throat, no swollen neck CARDIAC: no palpitations, no dyspnea on exertion, no orthopnea, no PND, no edema , no chest pain RESPIRATORY: no shortness of breath, no wheeze, no cough, no sputum, no hemoptysis, no asthma GI: no decreased appetite, no nausea, no vomiting, no dysphagia, no diarrhea, no constipation, no abdominal pain URINARY: no change in frequency, no urgency, no polyuria, no hematuria, no incontinence MUSCULOSKELETAL: no muscle weakness, no pain, no joint stiffness NEUROLOGIC: no loss of sensation/numbness, no tingling, no tremors, no weakness/ paralysis HEMATOLOGIC: no anemia, no easy bruising SKIN: draining abscess on the penis. ENDOCRINE: no heat/cold intolerance, no polyuria, no polydipsia, no thyroid problems, no diabetes PSYCHIATRIC: no anxiety, no depression, no suicidal ideations Past History Past Medical History: other (Penile abscess) Past Surgical History: Other (I/D of penile abscess) Social history: smoking (1/2 PPD, meth use), full code. denies: alcohol abuse, prescription drug abuse, IV drug use Family history: no significant family history Medications and Allergies Allergies Allergy/AdvReac Type Severity Reaction Status Date / Time Penicillins Allergy Hives Verified 10/12/13 22:28 Home Medications Medication Instructions Recorded Confirmed Last Taken Type Doxycycline Hyclate [Vibramycin] 100 mg PO DAILY #10 capsule 11/20/17 Unknown Rx Linezolid [Zyvox] 600 mg PO BID #28 tablet 11/20/17 Unknown Rx oxyCODONE /ACETAMINOPHEN [Percocet 1 tab PO Q4H PRN #12 tablet 11/20/17 Unknown Rx 5/325 mg] Exam - Physical Exam Narrative exam: Not in cardiopulmonary distress. The patient appeared well nourished and normally developed. Vital signs as documented. Head exam is unremarkable. No scleral icterus . Neck is without jugular venous distension, thyromegaly, or carotid bruits. Lungs are clear to auscultation. Cardiac exam reveals regular rate and Rhythm. First and second heart sounds normal. No murmurs, rubs or gallops. Abdominal exam reveals normal bowel sounds, no masses, no organomegaly and no aortic enlargement. Extremities are nonedematous and both femoral and pedal pulses are normal. EQUIPMENT SALES SPECIALIST: Alert and oriented 3. No focal weakness. LYN: draining abscess on the penile shaft. - Constitutional Vitals: Temp Pulse Resp BP Pulse Ox 97.4 F L 71 16 121/58 96 11/21/17 01:43 11/21/17 04:00 11/21/17 04:44 11/21/17 04:00 11/21/17 04:20 Results - Labs CBC & Chem 7: 11/21/17 02:10 11/21/17 02:10 Labs: Laboratory Last Values WBC 10.4 K/mm3 (4.5-11.0) 11/21/17 02:10 RBC 2.26 M/mm3 (3.65-5.03) L 11/21/17 02:10 Hgb 7.2 gm/dl (11.8-15.2) L D 11/21/17 02:10 Hct 20.5 % (35.5-45.6) L D 11/21/17 02:10 MCV 91 fl (84-94) 11/21/17 02:10 MCH 32 pg (28-32) 11/21/17 02:10 MCHC 35 % (32-34) H 11/21/17 02:10 RDW 13.5 % (13.2-15.2) 11/21/17 02:10 Plt Count 469 K/mm3 (140-440) H D 11/21/17 02:10 Lymph % (Auto) 31.8 % (13.4-35.0) 11/21/17 02:10 [place] % (Auto) 11.6 % (0.0-7.3) H 11/21/17 02:10 Eos % (Auto) 3.4 % (0.0-4.3) 11/21/17 02:10 Baso % (Auto) 1.1 % (0.0-1.8) 11/21/17 02:10 Lymph # 3.3 K/mm3 (1.2-5.4) 11/21/17 02:10 [place] # 1.2 K/mm3 (0.0-0.8) H 11/21/17 02:10 Eos # 0.4 K/mm3 (0.0-0.4) 11/21/17 02:10 Baso # 0.1 K/mm3 (0.0-0.1) 11/21/17 02:10 Seg Neutrophils % 52.1 % (40.0-70.0) 11/21/17 02:10 Seg Neutrophils # 5.4 K/mm3 (1.8-7.7) 11/21/17 02:10 Sodium 140 mmol/L (137-145) 11/21/17 02:10 Potassium 4.5 mmol/L (3.6-5.0) D 11/21/17 02:10 Chloride 101.2 mmol/L (98-107) 11/21/17 02:10 Carbon Dioxide 27 mmol/L (22-30) 11/21/17 02:10 Anion Gap 16 mmol/L 11/21/17 02:10 BUN 8 mg/dL (9-20) L 11/21/17 02:10 Creatinine 0.7 mg/dL (0.8-1.5) L 11/21/17 02:10 Estimated GFR > 60 ml/min 11/21/17 02:10 BUN/Creatinine Ratio 11 % 11/21/17 02:10 Glucose 81 mg/dL (75-100) 11/21/17 02:10 Calcium 8.5 mg/dL (8.4-10.2) 11/21/17 02:10 Assessment and Plan Assessment and plan: Anemia - Hemoglobin drops from 12.5-7.2 - No hematemesis, melena or hematuria - Hematology consulted - Monitor H&H Penile Abscess - Patient is on by mouth Zyvox and doxycycline - Urology did incision and drainage on his previous admission DVT prophylaxis - SCDs Disposition - Admit to medical floor
[2017-11-21 07:40] LABS: Mean Corpuscular HGB Conc 34 % (32-34); Mean Corpuscular Hemoglobin 30 pg (28-32); Mean Corpuscular Volume 90 fl (84-94); Platelet Count 290 K/mm3 (140-440); Red Blood Count 3.85 M/mm3 (3.65-5.03); Red Cell Distribution Width 13.3 % (13.2-15.2)
[2017-11-21 07:52] LABS: Hemoglobin TNR gm/dl (11.8-15.2)
[2017-11-21 07:53] LABS: Hematocrit TNR % (35.5-45.6)
[2017-11-21 08:04] LABS: Iron 62 ug/dL (49-181); Total Iron Binding Capacity 188 mcg/dL (250-450)
[2017-11-21 08:10] LABS: Basophils # (Auto) 0.1 K/mm3 (0.0-0.1); Basophils % (Auto) 1.2 % (0.0-1.8); Eosinophils # (Auto) 0.3 K/mm3 (0.0-0.4); Eosinophils % (Auto) 4.3 % (0.0-4.3); Hematocrit 34.9 % (35.5-45.6); Hemoglobin 11.8 gm/dl (11.8-15.2); Lymphocytes # (Auto) 2.2 K/mm3 (1.2-5.4); Lymphocytes % (Auto) 35.4 % (13.4-35.0); Mean Corpuscular HGB Conc 34 % (32-34); Mean Corpuscular Hemoglobin 31 pg (28-32); Mean Corpuscular Volume 92 fl (84-94); Monocytes # (Auto) 0.7 K/mm3 (0.0-0.8); Monocytes % (Auto) 12.2 % (0.0-7.3); Platelet Count 284 K/mm3 (140-440); Red Blood Count 3.79 M/mm3 (3.65-5.03); Red Cell Distribution Width 13.8 % (13.2-15.2)
--- NOTE | 2017-11-21 08:35 | Progress Note ---
Assessment and Plan no more pus drain removed looks fine local care Subjective Date of service: 11/21/17 Principal diagnosis: penile abcess Objective - Constitutional Vitals: Vital Signs - 12hr 11/21/17 11/21/17 11/21/17 01:43 02:45 04:00 Temperature 97.4 F L Pulse Rate 70 71 Respiratory 18 16 12 Rate Blood Pressure 118/68 121/58 [Right] O2 Sat by Pulse 97 Oximetry 11/21/17 11/21/17 11/21/17 04:14 04:20 04:44 Temperature Pulse Rate Respiratory 16 12 16 Rate Blood Pressure [Right] O2 Sat by Pulse 96 Oximetry General appearance: Present: no acute distress - Respiratory Respiratory effort: normal - Gastrointestinal General gastrointestinal: Present: non-tender - Genitourinary Male genitourinary: asymmetrical (markedly improved ) - Labs CBC & Chem 7: 11/21/17 07:55 11/21/17 02:10 Labs: Abnormal lab results 11/21/17 11/21/17 11/21/17 Range/Units 02:10 02:10 07:04 RBC 2.26 L (3.65-5.03) M/mm3 Hgb 7.2 L D (11.8-15.2) gm/dl Hct 20.5 L D (35.5-45.6) % MCHC 35 H (32-34) % Plt Count 469 H D (140-440) K/mm3 Lymph % (Auto) (13.4-35.0) % [place] % (Auto) 11.6 H (0.0-7.3) % [place] # 1.2 H (0.0-0.8) K/mm3 BUN 8 L (9-20) mg/dL Creatinine 0.7 L (0.8-1.5) mg/dL TIBC 188 L (250-450) mcg/dL Folate (7.3-26.0) ng/mL 11/21/17 11/21/17 Range/Units 07:04 07:55 RBC (3.65-5.03) M/mm3 Hgb (11.8-15.2) gm/dl Hct 34.9 L D (35.5-45.6) % MCHC (32-34) % Plt Count (140-440) K/mm3 Lymph % (Auto) 35.4 H (13.4-35.0) % [place] % (Auto) 12.2 H (0.0-7.3) % [place] # (0.0-0.8) K/mm3 BUN (9-20) mg/dL Creatinine (0.8-1.5) mg/dL TIBC (250-450) mcg/dL Folate 6.27 L (7.3-26.0) ng/mL
[2017-11-21 09:45] VITALS: BP 120/60
[2017-11-21] MEDS ORDERED: PERCOCET 5/325 PO ONE (09:45)
--- NOTE | 2017-11-21 09:54 | Emergency Department Report ---
HPI - General Chief Complaint: Urogenital-Male Time Seen by Provider: 11/21/17 02:01 ED Past Medical Hx - Past Medical History Previous Medical History?: No Hx Hypertension: No Hx Congestive Heart Failure: No Hx Diabetes: No Hx Asthma: No Hx COPD: No Hx HIV: No - Surgical History Past Surgical History?: Yes Additional Surgical History: Jaw reconstruction, penile cyst surgery - Social History Smoking Status: Current Every Day Smoker - Medications Home Medications: Home Medications Medication Instructions Recorded Confirmed Last Taken Type Doxycycline Hyclate [Vibramycin] 100 mg PO DAILY #10 capsule 11/20/17 Unknown Rx Linezolid [Zyvox] 600 mg PO BID #28 tablet 11/20/17 Unknown Rx oxyCODONE /ACETAMINOPHEN [Percocet 1 tab PO Q4H PRN #12 tablet 11/20/17 Unknown Rx 5/325 mg] Doxycycline [Vibramycin CAP] 100 mg PO BID capsule 11/21/17 Unknown Rx Folic Acid [Folvite] 1 mg PO QDAY #30 tablet 11/21/17 Unknown Rx Linezolid [Zyvox] 600 mg PO Q12HR tablet 11/21/17 Unknown Rx ED Review of Systems ROS: Stated complaint: PENILE PAIN Other details as noted in HPI Physical Exam - Physical Exam Vital Signs: Vital Signs 11/21/17 11/21/17 11/21/17 01:43 02:45 04:00 Temperature 97.4 F L Pulse Rate 70 71 Respiratory 18 16 12 Rate Blood Pressure 118/68 121/58 [Right] O2 Sat by Pulse 97 Oximetry 11/21/17 11/21/17 11/21/17 04:14 04:20 04:44 Temperature Pulse Rate Respiratory 16 12 16 Rate Blood Pressure [Right] O2 Sat by Pulse 96 Oximetry 11/21/17 11/21/17 06:00 08:00 Temperature 97.8 F 97.2 F L Pulse Rate 70 80 Respiratory 18 16 Rate Blood Pressure 124/62 120/60 [Right] O2 Sat by Pulse 100 100 Oximetry ED Course Vital Signs 11/21/17 11/21/17 11/21/17 01:43 02:45 04:00 Temperature 97.4 F L Pulse Rate 70 71 Respiratory 18 16 12 Rate Blood Pressure 118/68 121/58 [Right] O2 Sat by Pulse 97 Oximetry 11/21/17 11/21/17 11/21/17 04:14 04:20 04:44 Temperature Pulse Rate Respiratory 16 12 16 Rate Blood Pressure [Right] O2 Sat by Pulse 96 Oximetry 11/21/17 11/21/17 06:00 08:00 Temperature 97.8 F 97.2 F L Pulse Rate 70 80 Respiratory 18 16 Rate Blood Pressure 124/62 120/60 [Right] O2 Sat by Pulse 100 100 Oximetry ED Medical Decision Making - Lab Data Result diagrams: 11/21/17 07:55 11/21/17 02:10 - Medical Decision Making Mr. Dewey presents to the ED for complication related to recent penile surgery. He underwent surgery for penile abscess. The drain partially removed. He was concerned for potential complication. He came to the ED. He was evaluated by urologist Dr. Herrera. Dr. Herrera recommended discharge after he removed the drain. Hospitalist approved discharge. I provided 1 dose of analgesia in the ED and arranged for ER discharge. Please see full H&P by my colleague for further information. Critical care attestation.: If time is entered above; I have spent that time in minutes in the direct care of this critically ill patient, excluding procedure time. ED Disposition Clinical Impression: Penile abscess, Post-op pain Disposition: DC-01 TO HOME OR SELFCARE Is pt being admited?: No Does the pt Need Aspirin: No Condition: Stable
[2017-11-21] MEDS ORDERED: FOLVITE PO SCH (10:00)
[2017-11-21] MEDS ORDERED: ZYVOX PO SCH (10:00)
[2017-11-21] MEDS ORDERED: VIBRAMYCIN PO SCH (10:00)
--- NOTE | 2017-11-21 16:07 | Discharge Summary ---
Providers - Providers Date of Admission: 11/21/17 03:42 Date of discharge: 11/21/17 Attending physician: AKHIL MEADOWS 11/21/17 03:06 Consult to Physician [CONS] Urgent Consulting Provider: VADIM DOMÍNGUEZ Reason For Exam: penile abscess s/p i and d Place consult to:: Dr. Domínguez Notified:: via their office number Phone number called:: [phone] Was contact made?: Yes If yes, spoke with:: Dr. Domínguez Time called:: 03:03 Comment:: Dr. Alfaro (er dr) spoke with Dr. Domínguez 11/21/17 03:43 Consult to Physician [CONS] Routine Consulting Provider: DARRYN ABBOTT Reason For Exam: anemia Place consult to:: Dr. Abbott Notified:: Via his phone Phone number called:: his number Was contact made?: Yes If yes, spoke with:: Dr. Abbott Time called:: 03:24 Comment:: Dr. Alfaro (er dr) spoke with Dr. Abobtt Primary care physician: SALLY RIDDLE Hospitalization Condition: Stable Hospital course: 47 year old -[place]i male with past medical history significant for penile abscess status post incision and drainage of this abscess, methamphetamine use was discharged yesterday from the hospital after he was admitted for sepsis, pain and abscess. He was treated with IV antibiotics and given prescription for by mouth Zyvox and doxycycline but he couldn't refill his medications. Urology was consulted and did drainage of abscess. Patient has a draining tube left on the abscess site and he felt a flap and both sides of the draining tube are on the outside and patient presented back to the ED. Patient was re-evaluated in ER by urologist, Dr Foss who removed the surgical drain and reassured pt that wound looked ok and will continue to heal with time. Patient was found to have anemia with hemoglobin of 7.2 and folate deficiency. Repeat CBC showed hemoglobin of 11.8 in addition patient is a Jehovah witness and denied blood transfusion. Patient was discharged with folic acid. Discharge diagnosis Folate deficiency-likely due to poor by mouth intake Status post I&D of penile abscess Disposition: TO HOME OR SELFCARE Core Measure Documentation - Palliative Care Palliative Care/ Comfort Measures: Not Applicable - Core Measures Any of the following diagnoses?: none Exam - Constitutional Vitals: Temp Pulse Resp BP Pulse Ox 97.2 F L 80 16 120/60 100 11/21/17 08:00 11/21/17 08:00 11/21/17 08:00 11/21/17 08:00 11/21/17 08:00 General appearance: Present: no acute distress, well-nourished - EENT Eyes: Present: PERRL ENT: hearing intact, clear oral mucosa - Neck Neck: Present: supple, normal ROM - Respiratory Respiratory effort: normal Respiratory: bilateral: CTA - Cardiovascular Heart Sounds: Present: S1 & S2. Absent: rub, click - Extremities Extremities: pulses symmetrical, No edema Peripheral Pulses: within normal limits - Abdominal General gastrointestinal: Present: soft, non-tender, non-distended, normal bowel sounds Male genitourinary: Present: tender (surgical scar present) - Rectal Rectal Exam: deferred - Integumentary Integumentary: Present: clear, warm, dry - Musculoskeletal Musculoskeletal: gait normal, strength equal bilaterally - Psychiatric Psychiatric: appropriate mood/affect, intact judgment & insight - Neurologic Neurologic: CNII-XII intact, moves all extremities - Allied Health Allied health notes reviewed: nursing Plan Activity: no restrictions Weight Bearing Status: Weight Bear as Tolerated Diet: regular Wound: per your surgeon's advice Follow up with: SALLY RIDDLE MD [Primary Care Provider] - 7 Days Prescriptions: Folic Acid [Folvite] 1 mg PO QDAY #30 tablet
== END 2017-11-21 10:50 | disposition home or self-care (01) | DRG 921 ==
LOC: ED 01:07 → 2B-ACE 03:42 → 3A 06:37
PROVIDERS: ADMIT Internal Medicine; ATTEND Internal Medicine
DX: T81.31XA Disruption of external operation (surgical) wound, not elsewhere classified, initial encounter (principal); N48.21 Abscess of corpus cavernosum and penis; S31.20XA Unspecified open wound of penis, initial encounter; Z88.0 Allergy status to penicillin; F17.200 Nicotine dependence, unspecified, uncomplicated; D52.9 Folate deficiency anemia, unspecified; Y83.8 Other surgical procedures as the cause of abnormal reaction of the patient, or of later complication, without mention of misadventure at the time of the procedure; Y92.89 Other specified places as the place of occurrence of the external cause
CPT/HCPCS: 36415; 80048; 82607; 82747; 83550; 85014; 85018; 85025; 85027; 96361; 96374; 96375; 96376; J1170; J2270; J2405; J7030